=== PATIENT | male | born 1940 | race Caucasian/White ===

== ENCOUNTER 2018-08-30 11:07 | Inpatient (IN) ==
[2018-08-30] MEDS ORDERED: ALBUTEROL/IPRATROPIUM 3 ML NEB RESP TX STA (12:46)
[2018-08-30] MEDS ORDERED: methylPREDNISolone SOD SUC 125 MG/2 ML VIAL IV STA (12:46)
[2018-08-30] MEDS ORDERED: LEVOFLOXACIN INJ 750 MG in PREMIX 1 EACH IV STA (12:46)
[2018-08-30 13:43] LABS: Basophils # 0.1 10*3/uL (0.0-0.2); Basophils % 0.2 % (0.0-0.8); Eosinophils % 0.2 % (0.00-10.9); Hematocrit 39.3 VOL% (42.0-52.0); Hemoglobin 13.7 GM/DL (14.0-18.0); Immature Granulocytes % 0.5 %; Immature Granulocytes Absolute 0.11 #; Lymphocytes # 0.7 10*3/uL (1.4-4.0); Lymphocytes % 2.8 % (21.2-54.2); Mean Corpuscular HGB Conc 34.9 GM/DL (32-36); Mean Corpuscular Hemoglobin 30 PG (27-34); Mean Corpuscular Volume 85.6 FL (87-102); Monocytes # 0.9 10*3/uL (0.11-0.8); Monocytes % 3.7 % (1.7-12.7); Neutrophils # 22.2 10*3/uL (1.4-7.4); Neutrophils % 92.6 % (38.7-73.9); Platelet Count 322 T/CUMM (130-400); Red Blood Count 4.59 MC/CUMM (3.8-5.5); Red Cell Distribution Width 13.2 % (9.3-17.3); White Blood Count 23.9 T/CUMM (4-12)
[2018-08-30 14:04] LABS: Albumin 3.5 G/DL (3.4-5.0); Calcium 8.7 MG/DL (8.5-10.1); Osmolality,Calculated 257.2 MOS/KG (273-304); Total Protein 6.3 G/DL (6.4-8.3)
[2018-08-30 14:05] LABS: Lymphocytes 2 % (20-55); Platelet Estimate Adequate; Segmented Neutrophils 95 % (50-85); Total Cells Counted 100
[2018-08-30] MEDS ORDERED: SODIUM CHLORIDE 0.9% 2,400 ML IV ONE (14:18)
[2018-08-30] MEDS ORDERED: ALBUTEROL 2.5 MG/3 ML NEB RESP TX PRN ×2 (14:21→14:25)
[2018-08-30] MEDS ORDERED: ACETAMINOPHEN 325 MG TABLET PO PRN (14:25)
[2018-08-30] MEDS ORDERED: guaiFENesin/DM ER 600-30 MG TABLET PO PRN (14:25)
[2018-08-30] MEDS ORDERED: ONDANSETRON 4 MG/2 ML VIAL IV PRN (14:25)
[2018-08-30] MEDS ORDERED: NOREPINEPHRINE 8 MG in SODIUM CHLORIDE 0.9% 242 ML IV PRN (14:25)
[2018-08-30] MEDS ORDERED: MORPHINE 4 MG/1 ML VIAL IV PRN (14:25)
[2018-08-30] MEDS ORDERED: hydrALAZINE 20 MG/1 ML VIAL IV PRN (14:44)
[2018-08-30] MEDS ORDERED: SODIUM CHLORIDE 0.9% 500 ML IV STA (14:45)
[2018-08-30] MEDS ORDERED: GLUCAGON 1 MG VIAL IM PRN (14:47)
[2018-08-30] MEDS ORDERED: MAGNESIUM SULF RIDER 2 GM in PREMIX 1 EACH IV PRN (14:47)
[2018-08-30] MEDS ORDERED: MAGNESIUM SULF RIDER 4 GM in PREMIX 1 EACH IV PRN (14:47)
[2018-08-30] MEDS ORDERED: DEXTROSE 50% 25 GM/50 ML SYRINGE IV PRN (14:47)
[2018-08-30 15:01] LABS: Allen Test Positive
[2018-08-30 15:02] LABS: ABG Base Excess 0.1 MMOL/L (-2.5-2.5); ABG HCO3 24.5 MMOL/L (20-26); ABG Oxygen Saturation 96.9 % (95-100); ABG PCO2 33.9 MM HG (35-48); ABG PH 7.447 (7.35-7.45); ABG PO2 87.5 MM HG (80-95)
[2018-08-30 15:30] LABS: Apearance,Urine Slightly Hazy (Clear); Bilirubin,Urine Negative (Negative); Blood, Urine Negative (Negative); Glucose,Urine (UA) Negative (Negative); Ketones,Urine Negative (Negative); Mucus,Urine Occasional /LPF (Occasional); Nitrite,Urine Negative (Negative); Protein,Urine Negative; RBC,Urine <1 /HPF (0-4); Urine Color Yellow (Yellow); Urine Specific Gravity 1.013 (1.001-1.035); Urine Urobilinogen < 2.0 EU/DL (0.2-1.0); WBC,Urine 1 /HPF (0-6)
[2018-08-30 16:04] LABS: Risk Ratio 2.36; Thyroid Stimulating Hormone 1.14 uIU/ml (0.358-3.74); VLDL CHOLESTEROL 18.4 MG/DL
[2018-08-30] MEDS ORDERED: LORazepam 2 MG/1 ML VIAL IV PRN (16:26)
[2018-08-30] MEDS: SODIUM CHLORIDE 0.9% 1,000 ML IV SCH (17:04)
[2018-08-30] MEDS: HEPARIN 5,000 UNIT/1 ML VIAL SUBCUT SCH ×2 (17:14→22:02)
[2018-08-30] MEDS: PANTOPRAZOLE 40 MG VIAL IV SCH (17:14)
[2018-08-30] MEDS: PIPERACILLIN/TAZOBACTAM 3,375 MG in SODIUM CHLORIDE 0.9% 100 ML IV SCH ×2 (17:14→21:37)
[2018-08-30] MEDS: INSULIN REGULAR 100 UNIT/ML SUBCUT SCH (19:04)
[2018-08-30] MEDS: ALBUTEROL/IPRATROPIUM 3 ML NEB RESP TX SCH (20:07)
[2018-08-30] MEDS: methylPREDNISolone SOD SUC 125 MG/2 ML VIAL IV SCH (21:35)
[2018-08-30] MEDS: traZODone 50 MG TABLET PO PRN (21:36)
[2018-08-30] MEDS: DOCUSATE SODIUM 100 MG CAPSULE PO SCH (21:36)
[2018-08-31] MEDS: ALBUTEROL/IPRATROPIUM 3 ML NEB RESP TX SCH ×4 (00:35→21:21)
[2018-08-31] MEDS: SODIUM CHLORIDE 0.9% 1,000 ML IV SCH ×2 (01:38→16:02)
[2018-08-31] MEDS: methylPREDNISolone SOD SUC 125 MG/2 ML VIAL IV SCH ×4 (02:06→21:08)
[2018-08-31 05:14] LABS: Basophils % 0.1 % (0.0-0.8); Hematocrit 37.4 VOL% (42.0-52.0); Hemoglobin 12.8 GM/DL (14.0-18.0); Immature Granulocytes % 1.2 %; Immature Granulocytes Absolute 0.26 #; Lymphocytes # 0.4 10*3/uL (1.4-4.0); Lymphocytes % 1.9 % (21.2-54.2); Mean Corpuscular HGB Conc 34.2 GM/DL (32-36); Mean Corpuscular Hemoglobin 30 PG (27-34); Mean Corpuscular Volume 86.8 FL (87-102); Mean Platelet Volume 9.6 FL (9.6-12.0); Monocytes # 0.2 10*3/uL (0.11-0.8); Neutrophils # 21.4 10*3/uL (1.4-7.4); Neutrophils % 95.8 % (38.7-73.9); Platelet Count 282 T/CUMM (130-400); Red Blood Count 4.31 MC/CUMM (3.8-5.5); Red Cell Distribution Width 13.2 % (9.3-17.3); White Blood Count 22.4 T/CUMM (4-12)
[2018-08-31 05:36] LABS: Bilirubin,Total 0.9 MG/DL (0.2-1.0); Calcium 8.3 MG/DL (8.5-10.1); Osmolality,Calculated 265.9 MOS/KG (273-304); Potassium 3.5 MMOL/L (3.5-5.1); Total Protein 6.2 G/DL (6.4-8.3)
[2018-08-31] MEDS: PIPERACILLIN/TAZOBACTAM 3,375 MG in SODIUM CHLORIDE 0.9% 100 ML IV SCH ×2 (05:50→18:03)
[2018-08-31] MEDS: HEPARIN 5,000 UNIT/1 ML VIAL SUBCUT SCH ×3 (06:23→22:59)
[2018-08-31 08:40] LABS: Band Neutrophils 19 % (0-10); Lymphocytes 2 % (20-55); Macrocytosis Slight; Segmented Neutrophils 79 % (50-85); Total Cells Counted 100
[2018-08-31 08:41] LABS: Anisocytosis Slight
[2018-08-31] MEDS: DOCUSATE SODIUM 100 MG CAPSULE PO SCH ×2 (10:19→21:08)
[2018-08-31] MEDS: hydroCHLOROthiazide 25 MG TABLET PO SCH (10:20)
[2018-08-31] MEDS: TELMISARTAN 40 MG TABLET PO SCH (10:20)
[2018-08-31] MEDS: PANTOPRAZOLE 40 MG TABLET PO SCH (10:25)
[2018-08-31] MEDS: INSULIN REGULAR 100 UNIT/ML SUBCUT SCH ×2 (10:27→18:00)
[2018-08-31] MEDS: VANCOMYCIN INJ 1,000 MG in SODIUM CHLORIDE 0.9% 250 ML IV SCH (11:21)
[2018-08-31] MEDS: LEVOFLOXACIN INJ 750 MG in PREMIX 1 EACH IV SCH (16:11)
[2018-08-31] MEDS: PANTOPRAZOLE 40 MG VIAL IV SCH (16:18)
[2018-09-01] MEDS: traZODone 50 MG TABLET PO PRN (00:19)
[2018-09-01] MEDS: ALBUTEROL/IPRATROPIUM 3 ML NEB RESP TX SCH ×4 (02:08→19:59)
[2018-09-01] MEDS: methylPREDNISolone SOD SUC 125 MG/2 ML VIAL IV SCH ×4 (03:40→17:10)
[2018-09-01] MEDS: PIPERACILLIN/TAZOBACTAM 3,375 MG in SODIUM CHLORIDE 0.9% 100 ML IV SCH ×3 (03:40→17:10)
[2018-09-01] MEDS: SODIUM CHLORIDE 0.9% 1,000 ML IV SCH ×3 (04:29→23:34)
[2018-09-01] MEDS: VANCOMYCIN INJ 1,000 MG in SODIUM CHLORIDE 0.9% 250 ML IV SCH ×2 (04:29→21:34)
[2018-09-01 05:21] LABS: Basophils % 0.1 % (0.0-0.8); Hemoglobin 11.7 GM/DL (14.0-18.0); Immature Granulocytes % 1.9 %; Immature Granulocytes Absolute 0.39 #; Lymphocytes # 0.4 10*3/uL (1.4-4.0); Lymphocytes % 1.8 % (21.2-54.2); Mean Corpuscular HGB Conc 34.4 GM/DL (32-36); Mean Corpuscular Hemoglobin 30 PG (27-34); Mean Corpuscular Volume 87.4 FL (87-102); Mean Platelet Volume 9.6 FL (9.6-12.0); Monocytes # 0.4 10*3/uL (0.11-0.8); Monocytes % 1.9 % (1.7-12.7); Neutrophils # 19.4 10*3/uL (1.4-7.4); Neutrophils % 94.3 % (38.7-73.9); Platelet Count 284 T/CUMM (130-400); Red Blood Count 3.89 MC/CUMM (3.8-5.5); Red Cell Distribution Width 13.6 % (9.3-17.3); White Blood Count 20.5 T/CUMM (4-12)
[2018-09-01 05:45] LABS: Hypochromasia 1+; Lymphocytes 1 % (20-55); Platelet Estimate Adequate; Segmented Neutrophils 98 % (50-85); Total Cells Counted 100
[2018-09-01 05:54] LABS: Albumin 2.7 G/DL (3.4-5.0); Bilirubin,Total 0.4 MG/DL (0.2-1.0); Calcium 7.6 MG/DL (8.5-10.1); Osmolality,Calculated 273.1 MOS/KG (273-304); Potassium 2.8 MMOL/L (3.5-5.1); Total Protein 5.7 G/DL (6.4-8.3)
[2018-09-01 06:14] LABS: Calcium 7.8 MG/DL (8.5-10.1); Osmolality,Calculated 273.1 MOS/KG (273-304); Potassium 2.8 MMOL/L (3.5-5.1)
[2018-09-01] MEDS: POTASSIUM CHLORIDE RIDER 10 MEQ in PREMIX 1 EACH IV PRN (06:15)
[2018-09-01] MEDS: HEPARIN 5,000 UNIT/1 ML VIAL SUBCUT SCH ×3 (06:26→23:45)
[2018-09-01] MEDS ORDERED: MAGNESIUM SULF RIDER 2 GM in PREMIX 1 EACH IV ONE (07:51)
[2018-09-01] MEDS: INSULIN REGULAR 100 UNIT/ML SUBCUT SCH ×2 (09:16→17:10)
[2018-09-01] MEDS: DOCUSATE SODIUM 100 MG CAPSULE PO SCH ×2 (09:17→21:38)
[2018-09-01] MEDS: hydroCHLOROthiazide 25 MG TABLET PO SCH (09:17)
[2018-09-01] MEDS: TELMISARTAN 40 MG TABLET PO SCH (09:17)
[2018-09-01] MEDS: POTASSIUM CHLORIDE 20 MEQ TABLET PO SCH ×4 (09:17→21:39)
[2018-09-01] MEDS: PANTOPRAZOLE 40 MG TABLET PO SCH (09:17)
[2018-09-01] MEDS: LEVOFLOXACIN INJ 750 MG in PREMIX 1 EACH IV SCH (13:56)
[2018-09-02] MEDS: ALBUTEROL/IPRATROPIUM 3 ML NEB RESP TX SCH ×4 (00:44→19:36)
[2018-09-02] MEDS: methylPREDNISolone SOD SUC 125 MG/2 ML VIAL IV SCH ×2 (01:35→09:03)
[2018-09-02] MEDS: traZODone 50 MG TABLET PO PRN ×2 (02:50→21:52)
[2018-09-02] MEDS: PIPERACILLIN/TAZOBACTAM 3,375 MG in SODIUM CHLORIDE 0.9% 100 ML IV SCH ×2 (02:51→09:04)
[2018-09-02] MEDS: SODIUM CHLORIDE 0.9% 1,000 ML IV SCH ×2 (02:53→09:05)
[2018-09-02 05:51] LABS: Basophils % 0.1 % (0.0-0.8); Calcium 8.3 MG/DL (8.5-10.1); Hematocrit 35.3 VOL% (42.0-52.0); Hemoglobin 11.8 GM/DL (14.0-18.0); Immature Granulocytes Absolute 0.16 #; Lymphocytes # 0.4 10*3/uL (1.4-4.0); Lymphocytes % 2.5 % (21.2-54.2); Mean Corpuscular HGB Conc 33.4 GM/DL (32-36); Mean Corpuscular Hemoglobin 30 PG (27-34); Mean Corpuscular Volume 88.7 FL (87-102); Mean Platelet Volume 9.4 FL (9.6-12.0); Monocytes # 0.3 10*3/uL (0.11-0.8); Neutrophils # 15.2 10*3/uL (1.4-7.4); Neutrophils % 94.4 % (38.7-73.9); Osmolality,Calculated 270.4 MOS/KG (273-304); Platelet Count 298 T/CUMM (130-400); Potassium 3.8 MMOL/L (3.5-5.1); Red Blood Count 3.98 MC/CUMM (3.8-5.5); Red Cell Distribution Width 13.5 % (9.3-17.3); White Blood Count 16.1 T/CUMM (4-12)
[2018-09-02 06:24] LABS: Alanine Aminotransferase 28 U/L (16-61); Albumin 2.7 G/DL (3.4-5.0); Alkaline Phosphatase 35 U/L (45-117); Aspartate Amino Transferase 29 U/L (0-37); Bilirubin,Total < 0.39 MG/DL (0.2-1.0); Blood Urea Nitrogen 19 MG/DL (7-18); Calcium 8.1 MG/DL (8.5-10.1); Glucose 145 MG/DL (74-106); Osmolality,Calculated 272.2 MOS/KG (273-304); Potassium 3.9 MMOL/L (3.5-5.1); Sodium 134 MMOL/L (136-145); Total Protein 5.7 G/DL (6.4-8.3)
[2018-09-02 06:28] LABS: Band Neutrophils 2 % (0-10); Hypochromasia 1+; Lymphocytes 3 % (20-55); Microcytosis Slight; Segmented Neutrophils 94 % (50-85); Total Cells Counted 100
[2018-09-02 06:29] LABS: Platelet Estimate Normal
[2018-09-02] MEDS: INSULIN REGULAR 100 UNIT/ML SUBCUT SCH ×2 (08:09→17:36)
[2018-09-02] MEDS: DOCUSATE SODIUM 100 MG CAPSULE PO SCH ×2 (09:04→21:52)
[2018-09-02] MEDS: hydroCHLOROthiazide 25 MG TABLET PO SCH (09:04)
[2018-09-02] MEDS: HEPARIN 5,000 UNIT/1 ML VIAL SUBCUT SCH ×3 (09:04→22:35)
[2018-09-02] MEDS: PANTOPRAZOLE 40 MG TABLET PO SCH (09:04)
[2018-09-02] MEDS: TELMISARTAN 40 MG TABLET PO SCH (09:04)
[2018-09-02] MEDS: predniSONE 20 MG TABLET PO SCH (12:19)
[2018-09-02] MEDS: LEVOFLOXACIN INJ 750 MG in PREMIX 1 EACH IV SCH (15:48)
[2018-09-03] MEDS: ALBUTEROL/IPRATROPIUM 3 ML NEB RESP TX SCH ×4 (01:10→19:25)
[2018-09-03 05:45] LABS: Basophils % 0.1 % (0.0-0.8); Eosinophils % 0.2 % (0.00-10.9); Hemoglobin 12.3 GM/DL (14.0-18.0); Immature Granulocytes % 1.3 %; Immature Granulocytes Absolute 0.16 #; Lymphocytes # 1.3 10*3/uL (1.4-4.0); Lymphocytes % 10.5 % (21.2-54.2); Mean Corpuscular HGB Conc 33.2 GM/DL (32-36); Mean Corpuscular Hemoglobin 30 PG (27-34); Mean Corpuscular Volume 88.9 FL (87-102); Mean Platelet Volume 9.5 FL (9.6-12.0); Monocytes # 0.7 10*3/uL (0.11-0.8); Monocytes % 5.4 % (1.7-12.7); Neutrophils # 10.5 10*3/uL (1.4-7.4); Neutrophils % 82.5 % (38.7-73.9); Platelet Count 285 T/CUMM (130-400); Red Blood Count 4.16 MC/CUMM (3.8-5.5); Red Cell Distribution Width 13.4 % (9.3-17.3); White Blood Count 12.7 T/CUMM (4-12)
[2018-09-03 06:15] LABS: Albumin 2.6 G/DL (3.4-5.0); Bilirubin,Total 0.4 MG/DL (0.2-1.0); Calcium 8.6 MG/DL (8.5-10.1); Osmolality,Calculated 266.5 MOS/KG (273-304); Potassium 3.3 MMOL/L (3.5-5.1); Total Protein 5.9 G/DL (6.4-8.3)
[2018-09-03] MEDS: INSULIN REGULAR 100 UNIT/ML SUBCUT SCH ×2 (08:21→15:45)
[2018-09-03] MEDS: DOCUSATE SODIUM 100 MG CAPSULE PO SCH ×2 (09:09→20:32)
[2018-09-03] MEDS: HEPARIN 5,000 UNIT/1 ML VIAL SUBCUT SCH ×3 (09:09→23:16)
[2018-09-03] MEDS: hydroCHLOROthiazide 25 MG TABLET PO SCH (09:09)
[2018-09-03] MEDS: TELMISARTAN 40 MG TABLET PO SCH (09:10)
[2018-09-03] MEDS: PANTOPRAZOLE 40 MG TABLET PO SCH (09:10)
[2018-09-03] MEDS: predniSONE 20 MG TABLET PO SCH (09:10)
[2018-09-03] MEDS: LEVOFLOXACIN 750 MG TABLET PO SCH (10:06)
[2018-09-03] MEDS: POTASSIUM CHLORIDE RIDER 10 MEQ in PREMIX 1 EACH IV PRN ×3 (20:33→23:24)
[2018-09-03] MEDS: traZODone 50 MG TABLET PO PRN (23:23)
[2018-09-04] MEDS: ALBUTEROL/IPRATROPIUM 3 ML NEB RESP TX SCH ×2 (00:34→07:57)
[2018-09-04] MEDS: POTASSIUM CHLORIDE RIDER 10 MEQ in PREMIX 1 EACH IV PRN (01:51)
[2018-09-04] MEDS: HEPARIN 5,000 UNIT/1 ML VIAL SUBCUT SCH (06:00)
[2018-09-04] MEDS ORDERED: predniSONE 10 MG TABLET PO SCH (07:02)
[2018-09-04] MEDS: hydroCHLOROthiazide 25 MG TABLET PO SCH (09:25)
[2018-09-04] MEDS: TELMISARTAN 40 MG TABLET PO SCH (09:25)
[2018-09-04] MEDS: PANTOPRAZOLE 40 MG TABLET PO SCH (09:26)
[2018-09-04] MEDS: LEVOFLOXACIN 750 MG TABLET PO SCH (09:26)
[2018-09-04] MEDS: DOCUSATE SODIUM 100 MG CAPSULE PO SCH (09:26)
[2018-09-04] MEDS: INSULIN REGULAR 100 UNIT/ML SUBCUT SCH (09:27)
[2018-09-04 12:38] VITALS: BP 116/79
== END 2018-09-04 12:33 | disposition home health service (06) | DRG 871 ==
LOC: EDBD → EDUNIT# → N.ED 11:07 → N.EDINP 14:25 → SUATTDRO 14:25 → N.CC 15:23 → N.5E 09-01 15:39
PROVIDERS: ADMIT Phlebology; ATTEND Internal Medicine

== ENCOUNTER 2019-02-12 10:51 | Inpatient (IN) ==
[2019-02-12] MEDS ORDERED: ALBUTEROL/IPRATROPIUM 3 ML NEB RESP TX STA (11:38)
[2019-02-12 11:53] LABS: Basophils # 0.1 10*3/uL (0.0-0.2); Basophils % 0.4 % (0.0-0.8); Eosinophils % 0.2 % (0.00-10.9); Hematocrit 42.9 VOL% (42.0-52.0); Hemoglobin 14.4 GM/DL (14.0-18.0); Immature Granulocytes % 0.7 %; Immature Granulocytes Absolute 0.16 #; Lymphocytes # 0.4 10*3/uL (1.4-4.0); Lymphocytes % 1.6 % (21.2-54.2); Mean Corpuscular HGB Conc 33.6 GM/DL (32-36); Mean Corpuscular Volume 85.5 FL (87-102); Mean Platelet Volume 9.3 FL (9.6-12.0); Monocytes % 2.6 % (1.7-12.7); Neutrophils % 94.5 % (38.7-73.9); Platelet Count 351 T/CUMM (130-400); Red Blood Count 5.02 MC/CUMM (3.8-5.5); Red Cell Distribution Width 13.8 % (9.3-17.3); White Blood Count 21.5 T/CUMM (4-12)
[2019-02-12 12:06] LABS: Albumin 3.7 G/DL (3.4-5.0); Bilirubin,Total 1.4 MG/DL (0.2-1.0); Calcium 9.3 MG/DL (8.5-10.1); Osmolality,Calculated 257.1 MOS/KG (273-304); Total Protein 7.6 G/DL (6.4-8.3)
[2019-02-12] MEDS ORDERED: LEVOFLOXACIN INJ 500 MG in PREMIX 1 EACH IV STA (12:06)
[2019-02-12 12:17] LABS: Band Neutrophils 10 % (0-10); Eosinophils 1 % (0-10); Lymphocytes 1 % (20-55); Segmented Neutrophils 86 % (50-85); Total Cells Counted 100
[2019-02-12 12:20] LABS: Polychromasia Slight
[2019-02-12 12:21] LABS: Platelet Estimate Increased
[2019-02-12 12:24] LABS: Ovalocytes Few
[2019-02-12] MEDS ORDERED: SODIUM CHLORIDE 0.9% 1,000 ML IV STA (12:53)
[2019-02-12] MEDS ORDERED: ALBUTEROL 2.5 MG/3 ML NEB RESP TX PRN (15:01)
[2019-02-12] MEDS ORDERED: ALBUTEROL/IPRATROPIUM 3 ML NEB RESP TX PRN (15:01)
[2019-02-12] MEDS ORDERED: ONDANSETRON 4 MG/2 ML VIAL IV PRN (15:02)
[2019-02-12] MEDS ORDERED: guaiFENesin/DM ER 600-30 MG TABLET PO PRN (15:02)
[2019-02-12] MEDS ORDERED: diphenhydrAMINE CAP 25 MG CAPSULE PO PRN (15:02)
[2019-02-12] MEDS ORDERED: DOCUSATE SODIUM 100 MG CAPSULE PO PRN (15:02)
[2019-02-12] MEDS ORDERED: ACETAMINOPHEN 325 MG TABLET PO PRN (15:02)
[2019-02-12] MEDS ORDERED: BISACODYL 5 MG TABLET PO PRN (15:02)
[2019-02-12] MEDS ORDERED: SODIUM CHLORIDE 0.9% 1,000 ML IV ONE (16:14)
[2019-02-12] MEDS: SODIUM CHLORIDE 0.9% 1,000 ML IV SCH (18:20)
[2019-02-12] MEDS: ENOXAPARIN 40 MG/0.4 ML SYRINGE SUBCUT SCH (21:42)
[2019-02-12] MEDS: CELECOXIB 200 MG CAPSULE PO SCH (21:44)
[2019-02-12] MEDS: rOPINIRole 0.25 MG TABLET PO SCH (21:45)
[2019-02-13] MEDS: SODIUM CHLORIDE 0.9% 1,000 ML IV SCH ×2 (02:14→10:01)
[2019-02-13 05:33] LABS: Basophils # 0.1 10*3/uL (0.0-0.2); Basophils % 0.4 % (0.0-0.8); Eosinophils # 0.5 10*3/uL (0.0-0.87); Eosinophils % 2.9 % (0.00-10.9); Hematocrit 32.8 VOL% (42.0-52.0); Hemoglobin 11.1 GM/DL (14.0-18.0); Immature Granulocytes % 0.6 %; Lymphocytes # 1.2 10*3/uL (1.4-4.0); Lymphocytes % 7.5 % (21.2-54.2); Mean Corpuscular HGB Conc 33.8 GM/DL (32-36); Mean Corpuscular Volume 84.8 FL (87-102); Mean Platelet Volume 9.7 FL (9.6-12.0); Monocytes % 3.6 % (1.7-12.7); Platelet Count 286 T/CUMM (130-400); Red Blood Count 3.87 MC/CUMM (3.8-5.5); White Blood Count 15.4 T/CUMM (4-12)
[2019-02-13 05:54] LABS: Calcium 8.1 MG/DL (8.5-10.1); Osmolality,Calculated 263.7 MOS/KG (273-304)
[2019-02-13] MEDS ORDERED: IPRATROPIUM 500 MCG/2.5 ML NEB RESP TX SCH (07:00)
[2019-02-13] MEDS ORDERED: LOSARTAN/HCTZ 50-12.5 MG TABLET PO SCH (09:00)
[2019-02-13] MEDS ORDERED: LEVOFLOXACIN INJ 750 MG in PREMIX 1 EACH IV SCH (09:00)
[2019-02-13] MEDS ORDERED: PANTOPRAZOLE 40 MG TABLET PO SCH (09:00)
[2019-02-13] MEDS: CELECOXIB 200 MG CAPSULE PO SCH ×2 (09:22→21:46)
[2019-02-13] MEDS: ASPIRIN EC 81 MG TABLET PO SCH (09:23)
[2019-02-13] MEDS: PANTOPRAZOLE 40 MG TABLET PO SCH (09:24)
[2019-02-13] MEDS: TERBINAFINE 250 MG TABLET PO SCH (09:24)
[2019-02-13] MEDS: LOSARTAN 50 MG TABLET PO SCH (09:28)
[2019-02-13] MEDS: Fluticasone Furoate-Vilanterol [Breo Ellipta] INH SCH (09:32)
[2019-02-13] MEDS: POTASSIUM CHLORIDE 20 MEQ TABLET PO PRN ×3 (10:01→14:21)
[2019-02-13] MEDS: PIPERACILLIN/TAZOBACTAM 3,375 MG in SODIUM CHLORIDE 0.9% 100 ML IV SCH ×2 (12:13→21:46)
[2019-02-13] MEDS: BUDESONIDE 0.5 MG/2 ML NEB RESP TX SCH ×2 (13:13→19:42)
[2019-02-13] MEDS: DORNASE ALFA 2.5 MG/2.5 ML VIAL RESP TX SCH (13:13)
[2019-02-13] MEDS: ALBUTEROL/IPRATROPIUM 3 ML NEB RESP TX SCH ×2 (13:13→19:42)
[2019-02-13] MEDS: AZITHROMYCIN INJ 500 MG in SODIUM CHLORIDE 0.9% 250 ML IV SCH (16:57)
[2019-02-13] MEDS: rOPINIRole 0.25 MG TABLET PO SCH (21:46)
[2019-02-13] MEDS: ENOXAPARIN 40 MG/0.4 ML SYRINGE SUBCUT SCH (21:46)
[2019-02-14] MEDS: ALBUTEROL/IPRATROPIUM 3 ML NEB RESP TX SCH ×4 (01:13→18:57)
[2019-02-14] MEDS: SODIUM CHLORIDE 0.9% 1,000 ML IV SCH (01:32)
[2019-02-14] MEDS: PIPERACILLIN/TAZOBACTAM 3,375 MG in SODIUM CHLORIDE 0.9% 100 ML IV SCH ×3 (05:15→20:51)
[2019-02-14 06:25] LABS: Basophils # 0.1 10*3/uL (0.0-0.2); Basophils % 0.8 % (0.0-0.8); Eosinophils # 0.8 10*3/uL (0.0-0.87); Eosinophils % 8.3 % (0.00-10.9); Hematocrit 31.3 VOL% (42.0-52.0); Hemoglobin 10.4 GM/DL (14.0-18.0); Immature Granulocytes % 0.3 %; Immature Granulocytes Absolute 0.03 #; Lymphocytes # 1.4 10*3/uL (1.4-4.0); Lymphocytes % 14.8 % (21.2-54.2); Mean Corpuscular HGB Conc 33.2 GM/DL (32-36); Mean Corpuscular Volume 86.5 FL (87-102); Mean Platelet Volume 9.6 FL (9.6-12.0); Monocytes % 6.8 % (1.7-12.7); Platelet Count 271 T/CUMM (130-400); Red Blood Count 3.62 MC/CUMM (3.8-5.5); Red Cell Distribution Width 14.1 % (9.3-17.3); White Blood Count 9.6 T/CUMM (4-12)
[2019-02-14 06:35] LABS: Calcium 8.2 MG/DL (8.5-10.1); Osmolality,Calculated 265.5 MOS/KG (273-304)
[2019-02-14] MEDS ORDERED: MAGNESIUM SULF RIDER 4 GM in PREMIX 1 EACH IV ONE (07:13)
[2019-02-14] MEDS: BUDESONIDE 0.5 MG/2 ML NEB RESP TX SCH ×2 (07:44→18:57)
[2019-02-14] MEDS: DORNASE ALFA 2.5 MG/2.5 ML VIAL RESP TX SCH ×3 (07:44→18:57)
[2019-02-14] MEDS: ASPIRIN EC 81 MG TABLET PO SCH (08:28)
[2019-02-14] MEDS: LOSARTAN 50 MG TABLET PO SCH (08:28)
[2019-02-14] MEDS: CELECOXIB 200 MG CAPSULE PO SCH ×2 (08:28→20:48)
[2019-02-14] MEDS: TERBINAFINE 250 MG TABLET PO SCH (08:28)
[2019-02-14] MEDS: PANTOPRAZOLE 40 MG TABLET PO SCH (08:28)
[2019-02-14] MEDS: Fluticasone Furoate-Vilanterol [Breo Ellipta] INH SCH (08:29)
[2019-02-14] MEDS: methylPREDNISolone SOD SUC 40 MG/1 ML VIAL IV SCH ×2 (09:21→17:02)
[2019-02-14] MEDS: amLODIPine 5 MG TABLET PO SCH (13:50)
[2019-02-14] MEDS: AZITHROMYCIN INJ 500 MG in SODIUM CHLORIDE 0.9% 250 ML IV SCH (17:59)
[2019-02-14] MEDS: ENOXAPARIN 40 MG/0.4 ML SYRINGE SUBCUT SCH (20:48)
[2019-02-14] MEDS: rOPINIRole 0.25 MG TABLET PO SCH (20:48)
[2019-02-15] MEDS: methylPREDNISolone SOD SUC 40 MG/1 ML VIAL IV SCH ×2 (00:51→09:00)
[2019-02-15] MEDS: ALBUTEROL/IPRATROPIUM 3 ML NEB RESP TX SCH ×2 (01:06→07:28)
[2019-02-15 04:41] LABS: Basophils % 0.1 % (0.0-0.8); Hematocrit 30.9 VOL% (42.0-52.0); Hemoglobin 10.2 GM/DL (14.0-18.0); Immature Granulocytes % 0.7 %; Immature Granulocytes Absolute 0.07 #; Lymphocytes # 0.5 10*3/uL (1.4-4.0); Lymphocytes % 5.2 % (21.2-54.2); Mean Corpuscular Volume 86.8 FL (87-102); Mean Platelet Volume 9.2 FL (9.6-12.0); Monocytes % 1.6 % (1.7-12.7); Neutrophils % 92.4 % (38.7-73.9); Platelet Count 280 T/CUMM (130-400); Red Blood Count 3.56 MC/CUMM (3.8-5.5); Red Cell Distribution Width 14.1 % (9.3-17.3); White Blood Count 9.4 T/CUMM (4-12)
[2019-02-15 05:10] LABS: Band Neutrophils 3 % (0-10); Lymphocytes 4 % (20-55); Platelet Estimate Normal; Segmented Neutrophils 93 % (50-85); Total Cells Counted 100
[2019-02-15 05:11] LABS: Anisocytosis 1+
[2019-02-15 05:16] LABS: Calcium 8.8 MG/DL (8.5-10.1); Osmolality,Calculated 273.2 MOS/KG (273-304)
[2019-02-15 05:26] LABS: Calcium 8.6 MG/DL (8.5-10.1); Osmolality,Calculated 273.2 MOS/KG (273-304)
[2019-02-15] MEDS: PIPERACILLIN/TAZOBACTAM 3,375 MG in SODIUM CHLORIDE 0.9% 100 ML IV SCH (05:42)
[2019-02-15] MEDS: BUDESONIDE 0.5 MG/2 ML NEB RESP TX SCH (07:28)
[2019-02-15] MEDS: DORNASE ALFA 2.5 MG/2.5 ML VIAL RESP TX SCH (07:38)
[2019-02-15 07:48] VITALS: BP 172/99
[2019-02-15] MEDS: TERBINAFINE 250 MG TABLET PO SCH (09:01)
[2019-02-15] MEDS: ASPIRIN EC 81 MG TABLET PO SCH (09:01)
[2019-02-15] MEDS: LOSARTAN 50 MG TABLET PO SCH (09:01)
[2019-02-15] MEDS: PANTOPRAZOLE 40 MG TABLET PO SCH (09:01)
[2019-02-15] MEDS: CELECOXIB 200 MG CAPSULE PO SCH (09:01)
[2019-02-15] MEDS: amLODIPine 5 MG TABLET PO SCH (09:02)
[2019-02-15] MEDS: Fluticasone Furoate-Vilanterol [Breo Ellipta] INH SCH (09:03)
== END 2019-02-15 11:38 | disposition home health service (06) | DRG 190 ==
LOC: N.ED 10:51 → N.EDINP 14:01 → N.2E 14:43
PROVIDERS: ADMIT Internal Medicine; ATTEND Internal Medicine

== ENCOUNTER 2019-07-11 04:06 | Inpatient (IN) ==
[2019-07-11] MEDS ORDERED: ALBUTEROL/IPRATROPIUM 3 ML NEB RESP TX STA (04:56)
[2019-07-11] MEDS ORDERED: SODIUM CHLORIDE 0.9% 1,000 ML IV STA (04:56)
[2019-07-11] MEDS ORDERED: methylPREDNISolone SOD SUC 125 MG/2 ML VIAL IV STA (04:56)
[2019-07-11 05:27] LABS: ABG Base Excess -0.3 MMOL/L (-2.5-2.5); ABG HCO3 24.2 MMOL/L (20-26); ABG Oxygen Saturation 96.7 % (95-100); ABG PCO2 31.6 MM HG (35-48); ABG PH 7.462 (7.35-7.45); ABG PO2 78.2 MM HG (80-95); ABG TCO2 19.2 MMOL/L (23-27); Allen Test Positive
[2019-07-11 05:39] LABS: Basophils % 0.3 % (0.0-0.8); Eosinophils # 0.1 10*3/uL (0.0-0.87); Eosinophils % 0.5 % (0.00-10.9); Hematocrit 41.6 VOL% (42.0-52.0); Hemoglobin 14.5 GM/DL (14.0-18.0); Immature Granulocytes % 0.3 %; Immature Granulocytes Absolute 0.05 #; Lymphocytes # 0.7 10*3/uL (1.4-4.0); Lymphocytes % 4.6 % (21.2-54.2); Mean Corpuscular HGB Conc 34.9 GM/DL (32-36); Mean Platelet Volume 9.2 FL (9.6-12.0); Monocytes % 1.8 % (1.7-12.7); Neutrophils % 92.5 % (38.7-73.9); Platelet Count 328 T/CUMM (130-400); Red Blood Count 4.84 MC/CUMM (3.8-5.5); White Blood Count 14.7 T/CUMM (4-12)
[2019-07-11] MEDS ORDERED: LEVOFLOXACIN INJ 500 MG in PREMIX 1 EACH IV STA (05:54)
[2019-07-11 06:05] LABS: Albumin 3.5 G/DL (3.4-5.0); Bilirubin,Total 0.8 MG/DL (0.2-1.0); Calcium 8.5 MG/DL (8.5-10.1); Osmolality,Calculated 268.4 MOS/KG (273-304); Total Protein 6.2 G/DL (6.4-8.3)
[2019-07-11 06:35] LABS: Band Neutrophils 5 % (0-10); Hypochromasia Slight; Lymphocytes 5 % (20-55); Segmented Neutrophils 89 % (50-85); Total Cells Counted 100
[2019-07-11 06:36] LABS: Microcytosis Slight
[2019-07-11] MEDS ORDERED: MAGNESIUM SULF RIDER 2 GM in PREMIX 1 EACH IV ONE (07:44)
[2019-07-11] MEDS ORDERED: NICOTINE 21 MG/24 HR PATCH TRANSDERM PRN (08:58)
[2019-07-11] MEDS ORDERED: MAGNESIUM SULF RIDER 2 GM in PREMIX 1 EACH IV PRN (08:58)
[2019-07-11] MEDS ORDERED: ALBUTEROL 2.5 MG/3 ML NEB RESP TX PRN (08:58)
[2019-07-11] MEDS ORDERED: MAGNESIUM SULF RIDER 4 GM in PREMIX 1 EACH IV PRN (08:58)
[2019-07-11] MEDS ORDERED: guaiFENesin/DM ER 600-30 MG TABLET PO PRN (08:58)
[2019-07-11] MEDS ORDERED: PROMETHAZINE 25 MG/1 ML VIAL IM PRN (08:58)
[2019-07-11] MEDS ORDERED: ACETAMINOPHEN 325 MG TABLET PO PRN (08:58)
[2019-07-11] MEDS ORDERED: diphenhydrAMINE CAP 25 MG CAPSULE PO PRN (08:58)
[2019-07-11] MEDS ORDERED: ONDANSETRON 4 MG/2 ML VIAL IV PRN (08:58)
[2019-07-11] MEDS ORDERED: ERGOCALCIFEROL 50,000 UNIT CAPSULE PO SCH (10:30)
[2019-07-11] MEDS: PIPERACILLIN/TAZOBACTAM 3,375 MG in SODIUM CHLORIDE 0.9% 100 ML IV SCH ×2 (13:02→17:12)
[2019-07-11] MEDS: DOCUSATE SODIUM 100 MG CAPSULE PO SCH ×2 (13:02→20:36)
[2019-07-11] MEDS: PANTOPRAZOLE 40 MG TABLET PO SCH (13:02)
[2019-07-11] MEDS: ALBUTEROL/IPRATROPIUM 3 ML NEB RESP TX SCH ×2 (14:00→20:17)
[2019-07-11] MEDS: methylPREDNISolone SOD SUC 40 MG/1 ML VIAL IV SCH ×2 (15:14→21:35)
[2019-07-11 16:12] LABS: Apearance,Urine CLEAR (Clear); Bilirubin,Urine Negative (Negative); Blood, Urine Negative (Negative); Glucose,Urine (UA) 50 mg/dL (Negative); Ketones,Urine Negative (Negative); Nitrite,Urine Negative (Negative); Protein,Urine Negative; RBC,Urine 1 /HPF (0-4); Urine Color Yellow (Yellow); Urine Specific Gravity 1.016 (1.001-1.035); Urine Urobilinogen < 2.0 EU/DL (0.2-1.0); WBC,Urine 1 /HPF (0-6)
[2019-07-11] MEDS: CELECOXIB 200 MG CAPSULE PO SCH (20:35)
[2019-07-11] MEDS: rOPINIRole 0.25 MG TABLET PO SCH (20:35)
[2019-07-11] MEDS: ZALEPLON 5 MG CAPSULE PO PRN (21:42)
[2019-07-12] MEDS: PIPERACILLIN/TAZOBACTAM 3,375 MG in SODIUM CHLORIDE 0.9% 100 ML IV SCH ×3 (00:24→17:45)
[2019-07-12] MEDS: methylPREDNISolone SOD SUC 40 MG/1 ML VIAL IV SCH ×3 (05:22→21:03)
[2019-07-12] MEDS: LEVOFLOXACIN INJ 750 MG in PREMIX 1 EACH IV SCH (05:22)
[2019-07-12 06:21] LABS: Basophils % 0.2 % (0.0-0.8); Immature Granulocytes % 1.4 %; Immature Granulocytes Absolute 0.35 #; Lymphocytes # 0.4 10*3/uL (1.4-4.0); Lymphocytes % 1.6 % (21.2-54.2); Mean Corpuscular HGB Conc 35.2 GM/DL (32-36); Mean Corpuscular Volume 85.1 FL (87-102); Mean Platelet Volume 10.1 FL (9.6-12.0); Monocytes % 1.6 % (1.7-12.7); Neutrophils % 95.2 % (38.7-73.9); Red Blood Count 3.88 MC/CUMM (3.8-5.5); Red Cell Distribution Width 13.3 % (9.3-17.3)
[2019-07-12 06:25] LABS: Hemoglobin 11.6 GM/DL (14.0-18.0); Platelet Count 252 T/CUMM (130-400); White Blood Count 25.1 T/CUMM (4-12)
[2019-07-12 06:29] LABS: Bilirubin,Total 0.7 MG/DL (0.2-1.0); Calcium 8.5 MG/DL (8.5-10.1); Lymphocytes 4 % (20-55); Osmolality,Calculated 272.7 MOS/KG (273-304); Platelet Estimate Normal; Polychromasia Slight; Risk Ratio 1.53; Segmented Neutrophils 95 % (50-85); Total Cells Counted 100; VLDL CHOLESTEROL 5.6 MG/DL
[2019-07-12] MEDS: ALBUTEROL/IPRATROPIUM 3 ML NEB RESP TX SCH ×4 (06:51→19:55)
[2019-07-12] MEDS ORDERED: hydrALAZINE 20 MG/1 ML VIAL IV PRN (08:20)
[2019-07-12] MEDS ORDERED: LOSARTAN 50 MG TABLET PO SCH (09:00)
[2019-07-12] MEDS: CELECOXIB 200 MG CAPSULE PO SCH ×2 (09:58→20:51)
[2019-07-12] MEDS: PANTOPRAZOLE 40 MG TABLET PO SCH (09:59)
[2019-07-12] MEDS: OMEGA 3 ACID ETHYL ESTERS 1 GM CAPSULE PO SCH ×2 (09:59→20:51)
[2019-07-12] MEDS: DOCUSATE SODIUM 100 MG CAPSULE PO SCH ×2 (09:59→20:51)
[2019-07-12] MEDS: amLODIPine 5 MG TABLET PO SCH (09:59)
[2019-07-12] MEDS: HEPARIN 5,000 UNIT/1 ML VIAL SUBCUT SCH ×2 (10:00→17:45)
[2019-07-12] MEDS: rOPINIRole 0.25 MG TABLET PO SCH (20:51)
[2019-07-12] MEDS: ZALEPLON 5 MG CAPSULE PO PRN (22:36)
[2019-07-13] MEDS: ALBUTEROL/IPRATROPIUM 3 ML NEB RESP TX SCH ×4 (00:29→19:39)
[2019-07-13] MEDS: PIPERACILLIN/TAZOBACTAM 3,375 MG in SODIUM CHLORIDE 0.9% 100 ML IV SCH ×2 (00:29→09:20)
[2019-07-13] MEDS: HEPARIN 5,000 UNIT/1 ML VIAL SUBCUT SCH ×3 (00:29→18:14)
[2019-07-13 05:31] LABS: Basophils % 0.1 % (0.0-0.8); Hematocrit 33.8 VOL% (42.0-52.0); Hemoglobin 11.6 GM/DL (14.0-18.0); Immature Granulocytes % 0.9 %; Immature Granulocytes Absolute 0.19 #; Lymphocytes # 0.4 10*3/uL (1.4-4.0); Lymphocytes % 1.8 % (21.2-54.2); Mean Corpuscular HGB Conc 34.3 GM/DL (32-36); Mean Corpuscular Volume 85.6 FL (87-102); Mean Platelet Volume 9.9 FL (9.6-12.0); Monocytes % 1.9 % (1.7-12.7); Neutrophils % 95.3 % (38.7-73.9); Platelet Count 259 T/CUMM (130-400); Red Blood Count 3.95 MC/CUMM (3.8-5.5); Red Cell Distribution Width 13.2 % (9.3-17.3); White Blood Count 20.9 T/CUMM (4-12)
[2019-07-13] MEDS: LEVOFLOXACIN INJ 750 MG in PREMIX 1 EACH IV SCH (05:38)
[2019-07-13] MEDS: methylPREDNISolone SOD SUC 40 MG/1 ML VIAL IV SCH ×2 (05:38→21:48)
[2019-07-13 05:48] LABS: Albumin 2.9 G/DL (3.4-5.0); Calcium 8.8 MG/DL (8.5-10.1); Osmolality,Calculated 268.8 MOS/KG (273-304); Total Protein 6.2 G/DL (6.4-8.3)
[2019-07-13 05:53] LABS: Band Neutrophils 2 % (0-10); Hypochromasia 1+; Lymphocytes 3 % (20-55); Platelet Estimate Adequate; Segmented Neutrophils 93 % (50-85); Total Cells Counted 100
[2019-07-13] MEDS: OMEGA 3 ACID ETHYL ESTERS 1 GM CAPSULE PO SCH ×2 (09:24→21:47)
[2019-07-13] MEDS: DOCUSATE SODIUM 100 MG CAPSULE PO SCH ×2 (09:24→21:47)
[2019-07-13] MEDS: CELECOXIB 200 MG CAPSULE PO SCH ×2 (09:24→21:46)
[2019-07-13] MEDS: amLODIPine 5 MG TABLET PO SCH (09:24)
[2019-07-13] MEDS: PANTOPRAZOLE 40 MG TABLET PO SCH (09:24)
[2019-07-13] MEDS: guaiFENesin/DM ER 600-30 MG TABLET PO SCH ×2 (12:12→21:46)
[2019-07-13] MEDS: cefTRIAXone 1,000 MG in SYRINGE 1 EACH IV SCH (15:37)
[2019-07-13] MEDS: LOSARTAN 50 MG TABLET PO SCH (15:38)
[2019-07-13] MEDS: ZALEPLON 5 MG CAPSULE PO PRN (21:46)
[2019-07-13] MEDS: rOPINIRole 0.25 MG TABLET PO SCH (21:46)
[2019-07-14] MEDS: ALBUTEROL/IPRATROPIUM 3 ML NEB RESP TX SCH ×4 (00:25→19:35)
[2019-07-14] MEDS: HEPARIN 5,000 UNIT/1 ML VIAL SUBCUT SCH ×3 (00:51→16:26)
[2019-07-14] MEDS: LEVOFLOXACIN INJ 750 MG in PREMIX 1 EACH IV SCH (05:33)
[2019-07-14 06:08] LABS: Basophils % 0.1 % (0.0-0.8); Hematocrit 37.9 VOL% (42.0-52.0); Hemoglobin 12.7 GM/DL (14.0-18.0); Immature Granulocytes Absolute 0.17 #; Lymphocytes # 0.5 10*3/uL (1.4-4.0); Mean Corpuscular HGB Conc 33.5 GM/DL (32-36); Mean Corpuscular Volume 86.1 FL (87-102); Mean Platelet Volume 9.8 FL (9.6-12.0); Monocytes % 1.8 % (1.7-12.7); Neutrophils % 94.1 % (38.7-73.9); Platelet Count 288 T/CUMM (130-400); Red Cell Distribution Width 13.3 % (9.3-17.3); White Blood Count 17.9 T/CUMM (4-12)
[2019-07-14 06:22] LABS: Calcium 8.6 MG/DL (8.5-10.1); Osmolality,Calculated 265.8 MOS/KG (273-304)
[2019-07-14 06:25] LABS: Bilirubin,Total 0.6 MG/DL (0.2-1.0); Calcium 8.6 MG/DL (8.5-10.1); Osmolality,Calculated 269.5 MOS/KG (273-304); Total Protein 6.6 G/DL (6.4-8.3)
[2019-07-14 06:28] LABS: Hypochromasia 1+; Lymphocytes 4 % (20-55); Platelet Estimate Adequate; Segmented Neutrophils 93 % (50-85); Total Cells Counted 100
[2019-07-14 06:29] LABS: Ovalocytes Slight
[2019-07-14] MEDS ORDERED: SODIUM CHLORIDE 0.9% 500 ML IV ONE ×2 (07:58→14:53)
[2019-07-14] MEDS: LOSARTAN 50 MG TABLET PO SCH (08:28)
[2019-07-14] MEDS: MULTIVITAMIN (CENTRUM) TABLET PO SCH (08:28)
[2019-07-14] MEDS: DOCUSATE SODIUM 100 MG CAPSULE PO SCH ×2 (08:29→20:33)
[2019-07-14] MEDS: guaiFENesin/DM ER 600-30 MG TABLET PO SCH ×2 (08:29→20:34)
[2019-07-14] MEDS: CELECOXIB 200 MG CAPSULE PO SCH ×2 (08:29→20:34)
[2019-07-14] MEDS: OMEGA 3 ACID ETHYL ESTERS 1 GM CAPSULE PO SCH ×2 (08:29→20:33)
[2019-07-14] MEDS: amLODIPine 5 MG TABLET PO SCH (08:29)
[2019-07-14] MEDS: methylPREDNISolone SOD SUC 40 MG/1 ML VIAL IV SCH (08:29)
[2019-07-14] MEDS: PANTOPRAZOLE 40 MG TABLET PO SCH (08:29)
[2019-07-14] MEDS ORDERED: NON-FORMULARY MEDICATION (Losartan 100 MG) PO SCH (09:00)
[2019-07-14] MEDS ORDERED: SODIUM CHLORIDE 0.9% 250 ML IV ONE (14:54)
[2019-07-14] MEDS: cefTRIAXone 1,000 MG in SYRINGE 1 EACH IV SCH ×2 (16:31→16:33)
[2019-07-14] MEDS: rOPINIRole 0.25 MG TABLET PO SCH (20:34)
[2019-07-14] MEDS: ZALEPLON 5 MG CAPSULE PO PRN (20:34)
[2019-07-15] MEDS: ALBUTEROL/IPRATROPIUM 3 ML NEB RESP TX SCH ×4 (00:21→19:22)
[2019-07-15] MEDS: HEPARIN 5,000 UNIT/1 ML VIAL SUBCUT SCH ×3 (00:36→16:27)
[2019-07-15] MEDS: LEVOFLOXACIN INJ 750 MG in PREMIX 1 EACH IV SCH (05:19)
[2019-07-15 05:36] LABS: Basophils # 0.1 10*3/uL (0.0-0.2); Basophils % 0.4 % (0.0-0.8); Eosinophils # 0.1 10*3/uL (0.0-0.87); Eosinophils % 0.9 % (0.00-10.9); Hematocrit 40.7 VOL% (42.0-52.0); Hemoglobin 13.9 GM/DL (14.0-18.0); Immature Granulocytes Absolute 0.25 #; Lymphocytes # 1.8 10*3/uL (1.4-4.0); Lymphocytes % 14.5 % (21.2-54.2); Mean Corpuscular HGB Conc 34.2 GM/DL (32-36); Mean Corpuscular Volume 85.5 FL (87-102); Mean Platelet Volume 9.9 FL (9.6-12.0); Monocytes % 6.3 % (1.7-12.7); Neutrophils % 75.9 % (38.7-73.9); Platelet Count 307 T/CUMM (130-400); Red Blood Count 4.76 MC/CUMM (3.8-5.5); Red Cell Distribution Width 13.2 % (9.3-17.3); White Blood Count 12.7 T/CUMM (4-12)
[2019-07-15 05:58] LABS: Bilirubin,Total 1.2 MG/DL (0.2-1.0); Calcium 8.7 MG/DL (8.5-10.1); Calcium 8.9 MG/DL (8.5-10.1); Osmolality,Calculated 258.9 MOS/KG (273-304); Osmolality,Calculated 260.8 MOS/KG (273-304); Total Protein 6.4 G/DL (6.4-8.3)
[2019-07-15] MEDS: MULTIVITAMIN (CENTRUM) TABLET PO SCH (08:34)
[2019-07-15] MEDS: OMEGA 3 ACID ETHYL ESTERS 1 GM CAPSULE PO SCH ×2 (08:34→20:45)
[2019-07-15] MEDS: DOCUSATE SODIUM 100 MG CAPSULE PO SCH ×2 (08:35→20:45)
[2019-07-15] MEDS: guaiFENesin/DM ER 600-30 MG TABLET PO SCH ×2 (08:36→20:45)
[2019-07-15] MEDS: predniSONE 20 MG TABLET PO SCH (08:36)
[2019-07-15] MEDS: amLODIPine 5 MG TABLET PO SCH (08:36)
[2019-07-15] MEDS: CELECOXIB 200 MG CAPSULE PO SCH ×2 (08:37→20:45)
[2019-07-15] MEDS: LOSARTAN 50 MG TABLET PO SCH (08:37)
[2019-07-15] MEDS: PANTOPRAZOLE 40 MG TABLET PO SCH (08:39)
[2019-07-15] MEDS: cefTRIAXone 1,000 MG in SYRINGE 1 EACH IV SCH (16:30)
[2019-07-15] MEDS: rOPINIRole 0.25 MG TABLET PO SCH (20:45)
[2019-07-15] MEDS: ZALEPLON 5 MG CAPSULE PO PRN (20:45)
[2019-07-16] MEDS: ALBUTEROL/IPRATROPIUM 3 ML NEB RESP TX SCH ×3 (00:24→13:54)
[2019-07-16] MEDS: HEPARIN 5,000 UNIT/1 ML VIAL SUBCUT SCH ×2 (02:00→08:34)
[2019-07-16 05:45] LABS: Basophils # 0.1 10*3/uL (0.0-0.2); Basophils % 0.7 % (0.0-0.8); Eosinophils # 0.4 10*3/uL (0.0-0.87); Eosinophils % 2.9 % (0.00-10.9); Hematocrit 40.1 VOL% (42.0-52.0); Hemoglobin 13.9 GM/DL (14.0-18.0); Immature Granulocytes % 3.9 %; Immature Granulocytes Absolute 0.52 #; Lymphocytes # 2.5 10*3/uL (1.4-4.0); Mean Corpuscular HGB Conc 34.7 GM/DL (32-36); Mean Corpuscular Volume 83.9 FL (87-102); Mean Platelet Volume 9.5 FL (9.6-12.0); Monocytes % 6.7 % (1.7-12.7); Neutrophils % 66.8 % (38.7-73.9); Platelet Count 278 T/CUMM (130-400); Red Blood Count 4.78 MC/CUMM (3.8-5.5); Red Cell Distribution Width 13.1 % (9.3-17.3); White Blood Count 13.3 T/CUMM (4-12)
[2019-07-16] MEDS: LEVOFLOXACIN INJ 750 MG in PREMIX 1 EACH IV SCH (06:12)
[2019-07-16 06:21] LABS: Lymphocytes 19 % (20-55); Platelet Estimate Normal; Segmented Neutrophils 76 % (50-85); Total Cells Counted 100
[2019-07-16 06:22] LABS: Polychromasia Few
[2019-07-16] MEDS: DOCUSATE SODIUM 100 MG CAPSULE PO SCH (08:33)
[2019-07-16] MEDS: CELECOXIB 200 MG CAPSULE PO SCH (08:33)
[2019-07-16] MEDS: OMEGA 3 ACID ETHYL ESTERS 1 GM CAPSULE PO SCH (08:34)
[2019-07-16] MEDS: guaiFENesin/DM ER 600-30 MG TABLET PO SCH (08:34)
[2019-07-16] MEDS: PANTOPRAZOLE 40 MG TABLET PO SCH (08:34)
[2019-07-16] MEDS: predniSONE 20 MG TABLET PO SCH (08:34)
[2019-07-16] MEDS: amLODIPine 5 MG TABLET PO SCH (08:34)
[2019-07-16] MEDS: MULTIVITAMIN (CENTRUM) TABLET PO SCH (08:34)
[2019-07-16] MEDS: LOSARTAN 50 MG TABLET PO SCH (08:34)
[2019-07-16 12:13] VITALS: BP 141/88
== END 2019-07-16 15:34 | disposition home health service (06) | DRG 193 ==
LOC: EDBD → EDUNIT# → N.ED 04:06 → N.EDINP 08:58 → N.2E 09:24
PROVIDERS: ADMIT Internal Medicine; ATTEND Internal Medicine

== ENCOUNTER 2020-02-21 14:44 | Inpatient (IN) ==
[2020-02-21 15:50] LABS: Basophils # 0.1 10*3/uL (0.0-0.2); Basophils % 0.7 % (0.0-0.8); Eosinophils # 0.5 10*3/uL (0.0-0.87); Eosinophils % 3.9 % (0.00-10.9); Hematocrit 41.4 VOL% (42.0-52.0); Hemoglobin 14.1 GM/DL (14.0-18.0); Immature Granulocytes % 0.5 %; Immature Granulocytes Absolute 0.06 #; Lymphocytes # 1.2 10*3/uL (1.4-4.0); Lymphocytes % 10.5 % (21.2-54.2); Mean Corpuscular HGB Conc 34.1 GM/DL (32-36); Mean Corpuscular Volume 84.8 FL (87-102); Monocytes % 7.7 % (1.7-12.7); Neutrophils % 76.7 % (38.7-73.9); Platelet Count 371 T/CUMM (130-400); Red Blood Count 4.88 MC/CUMM (3.8-5.5); Red Cell Distribution Width 13.2 % (9.3-17.3); White Blood Count 11.5 T/CUMM (4-12)
[2020-02-21 16:22] LABS: Albumin 3.8 G/DL (3.4-5.0); Bilirubin,Direct 0.16 MG/DL (0.0-0.20); Bilirubin,Indirect 0.3 MG/DL (0.0-1.0); Bilirubin,Total 0.5 MG/DL (0.2-1.0); Calcium 9.2 MG/DL (8.5-10.1); Osmolality,Calculated 257.1 MOS/KG (273-304); Total Protein 7.3 G/DL (6.4-8.3)
[2020-02-21] MEDS ORDERED: DOCUSATE SODIUM 100 MG CAPSULE PO PRN (16:36)
[2020-02-21] MEDS ORDERED: ALUMINUM/MAGNES/SIMETH MAX STR 30 ML UDCUP PO PRN (16:36)
[2020-02-21] MEDS ORDERED: ONDANSETRON 4 MG/2 ML VIAL IV PRN (16:36)
[2020-02-21] MEDS ORDERED: SIMETHICONE CHEW 125 MG TABLET PO PRN (16:36)
[2020-02-21] MEDS ORDERED: diphenhydrAMINE CAP 25 MG CAPSULE PO PRN (16:36)
[2020-02-21] MEDS ORDERED: BISACODYL 5 MG TABLET PO PRN (16:36)
[2020-02-21] MEDS ORDERED: traZODone 50 MG TABLET PO PRN (16:36)
[2020-02-21] MEDS ORDERED: CALCIUM CARBONATE CHEW 500 MG TABLET PO PRN (16:36)
[2020-02-21] MEDS ORDERED: hydrALAZINE 20 MG/1 ML VIAL IV PRN (16:36)
[2020-02-21] MEDS ORDERED: LACTULOSE 20 GM/30 ML UDCUP PO PRN (16:36)
[2020-02-21] MEDS ORDERED: guaiFENesin/DM ER 600-30 MG TABLET PO PRN (16:36)
[2020-02-21] MEDS ORDERED: ZALEPLON 5 MG CAPSULE PO PRN (16:36)
[2020-02-21] MEDS ORDERED: MORPHINE 4 MG/1 ML VIAL IV PRN (16:36)
[2020-02-21] MEDS: IPRATROPIUM 500 MCG/2.5 ML NEB RESP TX SCH ×2 (18:20→20:35)
[2020-02-21] MEDS ORDERED: ALBUTEROL/IPRATROPIUM 3 ML NEB RESP TX SCH (19:00)
[2020-02-21] MEDS: CELECOXIB 200 MG CAPSULE PO SCH (20:59)
[2020-02-21] MEDS: ENOXAPARIN 40 MG/0.4 ML SYRINGE SUBCUT SCH (20:59)
[2020-02-21] MEDS ORDERED: rOPINIRole 0.25 MG TABLET PO SCH (21:00)
[2020-02-21 21:52] LABS: Apearance,Urine CLEAR (Clear); Bilirubin,Urine Negative (Negative); Blood, Urine Negative (Negative); Glucose,Urine (UA) Negative (Negative); Ketones,Urine Negative (Negative); Mucus,Urine Moderate /LPF (Occasional); Nitrite,Urine Negative (Negative); Protein,Urine Negative; RBC,Urine 1 /HPF (0-4); Urine Color Yellow (Yellow); Urine Specific Gravity 1.018 (1.001-1.035); Urine Urobilinogen < 2.0 EU/DL (0.2-1.0); WBC,Urine 2 /HPF (0-6)
[2020-02-22] MEDS: IPRATROPIUM 500 MCG/2.5 ML NEB RESP TX SCH ×4 (01:10→19:06)
[2020-02-22] MEDS: ACETAMINOPHEN 325 MG TABLET PO PRN (05:55)
[2020-02-22 06:30] LABS: Basophils # 0.1 10*3/uL (0.0-0.2); Basophils % 1.2 % (0.0-0.8); Eosinophils # 0.7 10*3/uL (0.0-0.87); Eosinophils % 9.9 % (0.00-10.9); Hematocrit 35.9 VOL% (42.0-52.0); Hemoglobin 12.5 GM/DL (14.0-18.0); Immature Granulocytes % 0.3 %; Immature Granulocytes Absolute 0.02 #; Lymphocytes # 1.6 10*3/uL (1.4-4.0); Mean Corpuscular HGB Conc 34.8 GM/DL (32-36); Mean Corpuscular Volume 84.1 FL (87-102); Mean Platelet Volume 9.5 FL (9.6-12.0); Monocytes % 9.8 % (1.7-12.7); Neutrophils % 56.8 % (38.7-73.9); Platelet Count 302 T/CUMM (130-400); Red Blood Count 4.27 MC/CUMM (3.8-5.5); White Blood Count 7.5 T/CUMM (4-12)
[2020-02-22 06:58] LABS: Albumin 3.4 G/DL (3.4-5.0); Bilirubin,Total 0.6 MG/DL (0.2-1.0); Calcium 8.9 MG/DL (8.5-10.1); Osmolality,Calculated 262.7 MOS/KG (273-304); Risk Ratio 2.71; Thyroid Stimulating Hormone 0.973 uIU/ml (0.358-3.74); Total Protein 6.5 G/DL (6.4-8.3); VLDL CHOLESTEROL 19.4 MG/DL
[2020-02-22] MEDS ORDERED: TIOTROPIUM BROMIDE INH SCH (09:00)
[2020-02-22] MEDS ORDERED: amLODIPine 5 MG TABLET PO SCH (09:00)
[2020-02-22] MEDS: LOSARTAN 50 MG TABLET PO SCH (10:21)
[2020-02-22] MEDS: CELECOXIB 200 MG CAPSULE PO SCH ×2 (10:22→21:28)
[2020-02-22] MEDS: PANTOPRAZOLE 40 MG TABLET PO SCH (10:22)
[2020-02-22] MEDS: MULTIVITAMIN (CENTRUM) TABLET PO SCH (10:22)
[2020-02-22] MEDS: ASPIRIN EC 81 MG TABLET PO SCH (10:22)
[2020-02-22] MEDS: SODIUM CHLORIDE 0.9% 1,000 ML IV SCH (17:20)
[2020-02-22] MEDS: ENOXAPARIN 40 MG/0.4 ML SYRINGE SUBCUT SCH (21:28)
[2020-02-23] MEDS: IPRATROPIUM 500 MCG/2.5 ML NEB RESP TX SCH ×4 (00:35→19:30)
[2020-02-23 06:55] LABS: Basophils # 0.1 10*3/uL (0.0-0.2); Eosinophils # 0.6 10*3/uL (0.0-0.87); Hematocrit 36.3 VOL% (42.0-52.0); Hemoglobin 12.6 GM/DL (14.0-18.0); Immature Granulocytes % 0.5 %; Immature Granulocytes Absolute 0.04 #; Lymphocytes # 1.4 10*3/uL (1.4-4.0); Lymphocytes % 15.8 % (21.2-54.2); Mean Corpuscular HGB Conc 34.7 GM/DL (32-36); Mean Platelet Volume 9.7 FL (9.6-12.0); Monocytes % 8.9 % (1.7-12.7); Neutrophils % 66.8 % (38.7-73.9); Platelet Count 320 T/CUMM (130-400); Red Blood Count 4.32 MC/CUMM (3.8-5.5); White Blood Count 8.9 T/CUMM (4-12)
[2020-02-23] MEDS: SODIUM CHLORIDE 0.9% 1,000 ML IV SCH ×2 (07:21→19:42)
[2020-02-23 07:22] LABS: Albumin 3.2 G/DL (3.4-5.0); Bilirubin,Total 0.5 MG/DL (0.2-1.0); Calcium 8.8 MG/DL (8.5-10.1); Osmolality,Calculated 259.9 MOS/KG (273-304); Total Protein 6.5 G/DL (6.4-8.3)
[2020-02-23] MEDS: PANTOPRAZOLE 40 MG TABLET PO SCH (09:26)
[2020-02-23] MEDS: ASPIRIN EC 81 MG TABLET PO SCH (09:26)
[2020-02-23] MEDS: MULTIVITAMIN (CENTRUM) TABLET PO SCH (09:26)
[2020-02-23] MEDS: LOSARTAN 50 MG TABLET PO SCH (09:26)
[2020-02-23] MEDS: CELECOXIB 200 MG CAPSULE PO SCH ×2 (09:26→21:07)
[2020-02-23] MEDS: rOPINIRole 0.25 MG TABLET PO SCH ×2 (17:31→21:07)
[2020-02-23] MEDS: ACETAMINOPHEN 325 MG TABLET PO PRN (19:28)
[2020-02-23] MEDS: ENOXAPARIN 40 MG/0.4 ML SYRINGE SUBCUT SCH (21:08)
[2020-02-24] MEDS: IPRATROPIUM 500 MCG/2.5 ML NEB RESP TX SCH ×3 (00:40→13:05)
[2020-02-24 06:07] LABS: Basophils # 0.1 10*3/uL (0.0-0.2); Basophils % 1.3 % (0.0-0.8); Eosinophils # 0.9 10*3/uL (0.0-0.87); Eosinophils % 12.4 % (0.00-10.9); Hematocrit 36.2 VOL% (42.0-52.0); Hemoglobin 12.7 GM/DL (14.0-18.0); Immature Granulocytes % 0.4 %; Immature Granulocytes Absolute 0.03 #; Lymphocytes # 1.3 10*3/uL (1.4-4.0); Mean Corpuscular HGB Conc 35.1 GM/DL (32-36); Mean Platelet Volume 8.9 FL (9.6-12.0); Neutrophils % 58.9 % (38.7-73.9); Platelet Count 262 T/CUMM (130-400); Red Blood Count 4.36 MC/CUMM (3.8-5.5); Red Cell Distribution Width 12.8 % (9.3-17.3)
[2020-02-24 06:29] LABS: Eosinophils 7 % (0-10); Hypochromasia Slight; Lymphocytes 18 % (20-55); Platelet Estimate Adequate; Segmented Neutrophils 68 % (50-85); Total Cells Counted 100
[2020-02-24 06:39] LABS: Albumin 3.2 G/DL (3.4-5.0); Calcium 8.5 MG/DL (8.5-10.1); Osmolality,Calculated 259.8 MOS/KG (273-304); Total Protein 6.2 G/DL (6.4-8.3)
[2020-02-24] MEDS: PANTOPRAZOLE 40 MG TABLET PO SCH (10:31)
[2020-02-24] MEDS: rOPINIRole 0.25 MG TABLET PO SCH ×2 (10:31→14:15)
[2020-02-24] MEDS: MULTIVITAMIN (CENTRUM) TABLET PO SCH (10:31)
[2020-02-24] MEDS: LOSARTAN 50 MG TABLET PO SCH (10:32)
[2020-02-24] MEDS: ASPIRIN EC 81 MG TABLET PO SCH (10:32)
[2020-02-24] MEDS: CELECOXIB 200 MG CAPSULE PO SCH (10:32)
[2020-02-24 11:39] VITALS: BP 143/86
[2020-02-24] MEDS: SODIUM CHLORIDE 0.9% 1,000 ML IV SCH (14:23)
[2020-02-26] MEDS ORDERED: ERGOCALCIFEROL 50,000 UNIT CAPSULE PO SCH (16:40)
== END 2020-02-24 14:45 | disposition hospice, home (50) | DRG 552 ==
LOC: N.ED 14:44 → SUATTDRO 16:36 → N.EDINP 16:36 → N.3E 19:39
PROVIDERS: ADMIT Hospitalist; ATTEND Internal Medicine

== ENCOUNTER 2020-03-16 14:43 | Inpatient (IN) ==
[2020-03-16] MEDS ORDERED: ALBUTEROL/IPRATROPIUM 3 ML NEB RESP TX STA (15:10)
[2020-03-16 15:23] LABS: Basophils # 0.1 10*3/uL (0.0-0.2); Basophils % 0.4 % (0.0-0.8); Eosinophils # 0.7 10*3/uL (0.0-0.87); Eosinophils % 4.6 % (0.00-10.9); Hematocrit 30.2 VOL% (42.0-52.0); Hemoglobin 9.3 GM/DL (14.0-18.0); Immature Granulocytes % 0.7 %; Lymphocytes # 0.8 10*3/uL (1.4-4.0); Lymphocytes % 5.4 % (21.2-54.2); Mean Corpuscular HGB Conc 30.8 GM/DL (32-36); Mean Corpuscular Volume 90.4 FL (87-102); Monocytes % 5.3 % (1.7-12.7); Neutrophils % 83.6 % (38.7-73.9); Platelet Count 598 T/CUMM (130-400); Red Blood Count 3.34 MC/CUMM (3.8-5.5); Red Cell Distribution Width 14.2 % (9.3-17.3); White Blood Count 14.5 T/CUMM (4-12)
[2020-03-16] MEDS ORDERED: cefTRIAXone 1,000 MG in SODIUM CHLORIDE 0.9% 100 ML IV STA (15:46)
[2020-03-16 15:59] LABS: Albumin 2.3 G/DL (3.4-5.0); Bilirubin,Total 0.4 MG/DL (0.2-1.0); Calcium 8.2 MG/DL (8.5-10.1); Osmolality,Calculated 271.2 MOS/KG (273-304); Total Protein 5.4 G/DL (6.4-8.3)
[2020-03-16] MEDS ORDERED: DEXTROSE 50% 25 GM/50 ML VIAL IV PRN (17:27)
[2020-03-16] MEDS ORDERED: ONDANSETRON 4 MG/2 ML VIAL IV PRN (17:27)
[2020-03-16] MEDS ORDERED: GLUCAGON 1 MG VIAL IM PRN (17:27)
[2020-03-16] MEDS: SODIUM CHLORIDE 0.9% 1,000 ML IV SCH (21:50)
[2020-03-16] MEDS: PIPERACILLIN/TAZOBACTAM 3,375 MG in SODIUM CHLORIDE 0.9% 100 ML IV SCH (22:07)
[2020-03-16] MEDS: TAMSULOSIN 0.4 MG CAPSULE PO SCH (22:35)
[2020-03-16] MEDS: ASCORBIC ACID 500 MG TABLET PO SCH (22:36)
[2020-03-16] MEDS: carvediloL 6.25 MG TABLET PO SCH (22:36)
[2020-03-16] MEDS: MAGNESIUM OXIDE 400 MG TABLET PO SCH (22:37)
[2020-03-16] MEDS: ACETAMINOPHEN 325 MG TABLET PO SCH (22:37)
[2020-03-16] MEDS: ATORVASTATIN 80 MG TABLET PO SCH (22:38)
[2020-03-16] MEDS: CALCIUM (CARBONATE) 600 MG TABLET PO SCH (22:39)
[2020-03-16] MEDS: LACTOBACILLUS ACIDOPHILUS/BULGARICUS CAPLET PO SCH (22:40)
[2020-03-16] MEDS: ENOXAPARIN 40 MG/0.4 ML SYRINGE SUBCUT SCH (22:48)
[2020-03-17] MEDS: ALBUTEROL/IPRATROPIUM 3 ML NEB RESP TX SCH ×5 (00:02→20:07)
[2020-03-17] MEDS: PIPERACILLIN/TAZOBACTAM 3,375 MG in SODIUM CHLORIDE 0.9% 100 ML IV SCH ×4 (02:34→23:14)
[2020-03-17 05:48] LABS: Basophils # 0.1 10*3/uL (0.0-0.2); Basophils % 0.7 % (0.0-0.8); Eosinophils # 0.5 10*3/uL (0.0-0.87); Eosinophils % 4.7 % (0.00-10.9); Hematocrit 24.9 VOL% (42.0-52.0); Hemoglobin 7.8 GM/DL (14.0-18.0); Lymphocytes # 1.1 10*3/uL (1.4-4.0); Lymphocytes % 10.8 % (21.2-54.2); Mean Corpuscular HGB Conc 31.3 GM/DL (32-36); Mean Corpuscular Volume 90.2 FL (87-102); Mean Platelet Volume 9.5 FL (9.6-12.0); Monocytes % 7.7 % (1.7-12.7); Neutrophils % 75.1 % (38.7-73.9); Platelet Count 485 T/CUMM (130-400); Red Blood Count 2.76 MC/CUMM (3.8-5.5); Red Cell Distribution Width 14.2 % (9.3-17.3); White Blood Count 9.9 T/CUMM (4-12)
[2020-03-17 06:01] LABS: Calcium 7.7 MG/DL (8.5-10.1); Osmolality,Calculated 271.8 MOS/KG (273-304)
[2020-03-17] MEDS: MAGNESIUM OXIDE 400 MG TABLET PO SCH ×3 (08:20→21:46)
[2020-03-17] MEDS: LACTOBACILLUS ACIDOPHILUS/BULGARICUS CAPLET PO SCH ×3 (08:20→21:45)
[2020-03-17] MEDS: MULTIVITAMIN (CENTRUM) TABLET PO SCH (08:20)
[2020-03-17] MEDS: ASCORBIC ACID 500 MG TABLET PO SCH ×2 (08:20→21:45)
[2020-03-17] MEDS: ZINC GLUCONATE 50 MG TABLET PO SCH (08:20)
[2020-03-17] MEDS: CALCIUM (CARBONATE) 600 MG TABLET PO SCH ×2 (08:21→21:51)
[2020-03-17] MEDS: ACETAMINOPHEN 325 MG TABLET PO SCH ×4 (08:21→21:47)
[2020-03-17] MEDS: TAMSULOSIN 0.4 MG CAPSULE PO SCH ×2 (08:21→21:46)
[2020-03-17] MEDS: LOSARTAN 50 MG TABLET PO SCH (08:21)
[2020-03-17] MEDS: FERROUS SULFATE 325 MG TABLET PO SCH (08:21)
[2020-03-17] MEDS: carvediloL 6.25 MG TABLET PO SCH ×2 (08:21→21:49)
[2020-03-17] MEDS: ASPIRIN EC 81 MG TABLET PO SCH (08:21)
[2020-03-17] MEDS ORDERED: ENOXAPARIN 40 MG/0.4 ML SYRINGE SUBCUT SCH (09:00)
[2020-03-17] MEDS: SODIUM CHLORIDE 0.9% 1,000 ML IV SCH ×3 (10:40→23:16)
[2020-03-17] MEDS: ATORVASTATIN 80 MG TABLET PO SCH (21:48)
[2020-03-17] MEDS: ENOXAPARIN 40 MG/0.4 ML SYRINGE SUBCUT SCH (21:53)
[2020-03-17] MEDS: ZINC OXIDE PASTE 113 GM TUBE TOP SCH (21:56)
[2020-03-18] MEDS: ALBUTEROL/IPRATROPIUM 3 ML NEB RESP TX SCH ×4 (00:39→20:07)
[2020-03-18] MEDS: PIPERACILLIN/TAZOBACTAM 3,375 MG in SODIUM CHLORIDE 0.9% 100 ML IV SCH ×3 (05:51→21:14)
[2020-03-18 06:13] LABS: Basophils # 0.1 10*3/uL (0.0-0.2); Basophils % 0.8 % (0.0-0.8); Eosinophils # 0.7 10*3/uL (0.0-0.87); Eosinophils % 8.4 % (0.00-10.9); Hematocrit 24.5 VOL% (42.0-52.0); Hemoglobin 7.8 GM/DL (14.0-18.0); Immature Granulocytes % 0.5 %; Immature Granulocytes Absolute 0.04 #; Lymphocytes # 0.9 10*3/uL (1.4-4.0); Lymphocytes % 11.1 % (21.2-54.2); Mean Corpuscular HGB Conc 31.8 GM/DL (32-36); Mean Corpuscular Volume 86.9 FL (87-102); Mean Platelet Volume 9.4 FL (9.6-12.0); Monocytes % 7.6 % (1.7-12.7); Neutrophils % 71.6 % (38.7-73.9); Platelet Count 419 T/CUMM (130-400); Red Blood Count 2.82 MC/CUMM (3.8-5.5); Red Cell Distribution Width 14.1 % (9.3-17.3); White Blood Count 8.5 T/CUMM (4-12)
[2020-03-18 06:49] LABS: Calcium 7.6 MG/DL (8.5-10.1); Osmolality,Calculated 266.1 MOS/KG (273-304)
[2020-03-18] MEDS: ASCORBIC ACID 500 MG TABLET PO SCH ×2 (09:09→20:24)
[2020-03-18] MEDS: MAGNESIUM OXIDE 400 MG TABLET PO SCH ×3 (09:09→20:24)
[2020-03-18] MEDS: POTASSIUM CHLORIDE 20 MEQ TABLET PO PRN ×3 (09:09→17:10)
[2020-03-18] MEDS: LOSARTAN 50 MG TABLET PO SCH (09:09)
[2020-03-18] MEDS: TAMSULOSIN 0.4 MG CAPSULE PO SCH ×2 (09:09→20:24)
[2020-03-18] MEDS: ACETAMINOPHEN 325 MG TABLET PO SCH ×4 (09:09→20:24)
[2020-03-18] MEDS: MULTIVITAMIN (CENTRUM) TABLET PO SCH (09:09)
[2020-03-18] MEDS: LACTOBACILLUS ACIDOPHILUS/BULGARICUS CAPLET PO SCH ×3 (09:09→20:23)
[2020-03-18] MEDS: ZINC GLUCONATE 50 MG TABLET PO SCH (09:09)
[2020-03-18] MEDS: CALCIUM (CARBONATE) 600 MG TABLET PO SCH ×2 (09:09→20:24)
[2020-03-18] MEDS: ASPIRIN EC 81 MG TABLET PO SCH (09:10)
[2020-03-18] MEDS: FERROUS SULFATE 325 MG TABLET PO SCH (09:10)
[2020-03-18] MEDS: ZINC OXIDE PASTE 113 GM TUBE TOP SCH ×2 (09:10→20:46)
[2020-03-18] MEDS: carvediloL 6.25 MG TABLET PO SCH ×2 (09:10→20:24)
[2020-03-18] MEDS: SODIUM CHLORIDE 0.9% 1,000 ML IV SCH (11:55)
[2020-03-18] MEDS ORDERED: TUBERCULIN SKIN TEST 0.1 ML SYRINGE INTRADERM ONE (13:28)
[2020-03-18] MEDS: ATORVASTATIN 80 MG TABLET PO SCH (20:24)
[2020-03-18] MEDS: ENOXAPARIN 40 MG/0.4 ML SYRINGE SUBCUT SCH (20:26)
[2020-03-19] MEDS: ALBUTEROL/IPRATROPIUM 3 ML NEB RESP TX SCH ×4 (01:06→19:37)
[2020-03-19] MEDS: PIPERACILLIN/TAZOBACTAM 3,375 MG in SODIUM CHLORIDE 0.9% 100 ML IV SCH ×3 (06:37→21:18)
[2020-03-19 07:31] LABS: Basophils # 0.1 10*3/uL (0.0-0.2); Basophils % 0.7 % (0.0-0.8); Eosinophils # 0.8 10*3/uL (0.0-0.87); Eosinophils % 7.3 % (0.00-10.9); Hematocrit 26.3 VOL% (42.0-52.0); Hemoglobin 8.7 GM/DL (14.0-18.0); Immature Granulocytes % 0.5 %; Immature Granulocytes Absolute 0.06 #; Lymphocytes % 8.4 % (21.2-54.2); Mean Corpuscular HGB Conc 33.1 GM/DL (32-36); Mean Corpuscular Volume 85.9 FL (87-102); Mean Platelet Volume 9.3 FL (9.6-12.0); Neutrophils % 76.1 % (38.7-73.9); Platelet Count 419 T/CUMM (130-400); Red Blood Count 3.06 MC/CUMM (3.8-5.5); Red Cell Distribution Width 13.9 % (9.3-17.3); White Blood Count 11.4 T/CUMM (4-12)
[2020-03-19 07:45] LABS: Calcium 8.6 MG/DL (8.5-10.1); Osmolality,Calculated 257.8 MOS/KG (273-304)
[2020-03-19] MEDS: CALCIUM (CARBONATE) 600 MG TABLET PO SCH ×2 (09:12→20:50)
[2020-03-19] MEDS: ASCORBIC ACID 500 MG TABLET PO SCH ×2 (09:13→20:50)
[2020-03-19] MEDS: MULTIVITAMIN (CENTRUM) TABLET PO SCH (09:13)
[2020-03-19] MEDS: MAGNESIUM OXIDE 400 MG TABLET PO SCH ×3 (09:13→20:51)
[2020-03-19] MEDS: TAMSULOSIN 0.4 MG CAPSULE PO SCH ×2 (09:13→20:51)
[2020-03-19] MEDS: carvediloL 6.25 MG TABLET PO SCH ×2 (09:13→20:50)
[2020-03-19] MEDS: LOSARTAN 50 MG TABLET PO SCH (09:13)
[2020-03-19] MEDS: ACETAMINOPHEN 325 MG TABLET PO SCH ×4 (09:13→20:50)
[2020-03-19] MEDS: ASPIRIN EC 81 MG TABLET PO SCH (09:13)
[2020-03-19] MEDS: LACTOBACILLUS ACIDOPHILUS/BULGARICUS CAPLET PO SCH ×3 (09:13→20:50)
[2020-03-19] MEDS: FERROUS SULFATE 325 MG TABLET PO SCH (09:13)
[2020-03-19] MEDS: ZINC OXIDE PASTE 113 GM TUBE TOP SCH ×2 (09:14→20:51)
[2020-03-19] MEDS: ZINC GLUCONATE 50 MG TABLET PO SCH (09:15)
[2020-03-19] MEDS: SODIUM CHLORIDE 0.9% 1,000 ML IV SCH ×2 (10:52→15:36)
[2020-03-19] MEDS: ATORVASTATIN 80 MG TABLET PO SCH (20:51)
[2020-03-19] MEDS: ENOXAPARIN 40 MG/0.4 ML SYRINGE SUBCUT SCH (20:51)
[2020-03-20] MEDS: ALBUTEROL/IPRATROPIUM 3 ML NEB RESP TX SCH ×4 (01:10→19:16)
[2020-03-20 06:33] LABS: Basophils # 0.1 10*3/uL (0.0-0.2); Basophils % 0.6 % (0.0-0.8); Eosinophils # 0.8 10*3/uL (0.0-0.87); Eosinophils % 7.1 % (0.00-10.9); Hematocrit 26.5 VOL% (42.0-52.0); Hemoglobin 8.6 GM/DL (14.0-18.0); Immature Granulocytes % 0.6 %; Immature Granulocytes Absolute 0.06 #; Lymphocytes % 9.5 % (21.2-54.2); Mean Corpuscular HGB Conc 32.5 GM/DL (32-36); Mean Corpuscular Volume 85.2 FL (87-102); Mean Platelet Volume 9.6 FL (9.6-12.0); Monocytes % 7.5 % (1.7-12.7); Neutrophils % 74.7 % (38.7-73.9); Platelet Count 411 T/CUMM (130-400); Red Blood Count 3.11 MC/CUMM (3.8-5.5); Red Cell Distribution Width 13.8 % (9.3-17.3); White Blood Count 10.8 T/CUMM (4-12)
[2020-03-20] MEDS: PIPERACILLIN/TAZOBACTAM 3,375 MG in SODIUM CHLORIDE 0.9% 100 ML IV SCH ×3 (06:34→21:21)
[2020-03-20 06:52] LABS: Calcium 8.4 MG/DL (8.5-10.1); Osmolality,Calculated 252.2 MOS/KG (273-304)
[2020-03-20] MEDS: MULTIVITAMIN (CENTRUM) TABLET PO SCH (09:42)
[2020-03-20] MEDS: ZINC GLUCONATE 50 MG TABLET PO SCH (09:42)
[2020-03-20] MEDS: CALCIUM (CARBONATE) 600 MG TABLET PO SCH ×2 (09:42→21:20)
[2020-03-20] MEDS: ASPIRIN EC 81 MG TABLET PO SCH (09:43)
[2020-03-20] MEDS: FERROUS SULFATE 325 MG TABLET PO SCH (09:43)
[2020-03-20] MEDS: ZINC OXIDE PASTE 113 GM TUBE TOP SCH ×2 (09:43→21:21)
[2020-03-20] MEDS: carvediloL 6.25 MG TABLET PO SCH ×2 (09:43→21:23)
[2020-03-20] MEDS: MAGNESIUM OXIDE 400 MG TABLET PO SCH ×3 (09:43→21:20)
[2020-03-20] MEDS: ASCORBIC ACID 500 MG TABLET PO SCH ×2 (09:43→21:21)
[2020-03-20] MEDS: LACTOBACILLUS ACIDOPHILUS/BULGARICUS CAPLET PO SCH ×3 (09:43→21:20)
[2020-03-20] MEDS: TAMSULOSIN 0.4 MG CAPSULE PO SCH ×2 (09:43→21:20)
[2020-03-20] MEDS: LOSARTAN 50 MG TABLET PO SCH (09:43)
[2020-03-20] MEDS: ACETAMINOPHEN 325 MG TABLET PO SCH ×4 (09:44→21:20)
[2020-03-20] MEDS: SODIUM CHLORIDE 0.9% 1,000 ML IV SCH (14:34)
[2020-03-20] MEDS: ATORVASTATIN 80 MG TABLET PO SCH (21:20)
[2020-03-20] MEDS: ENOXAPARIN 40 MG/0.4 ML SYRINGE SUBCUT SCH (21:20)
[2020-03-21] MEDS: ALBUTEROL/IPRATROPIUM 3 ML NEB RESP TX SCH ×4 (02:13→19:22)
[2020-03-21 04:39] LABS: Basophils # 0.1 10*3/uL (0.0-0.2); Basophils % 0.7 % (0.0-0.8); Eosinophils # 0.8 10*3/uL (0.0-0.87); Eosinophils % 6.5 % (0.00-10.9); Hematocrit 29.4 VOL% (42.0-52.0); Hemoglobin 9.7 GM/DL (14.0-18.0); Immature Granulocytes % 0.6 %; Immature Granulocytes Absolute 0.07 #; Lymphocytes # 1.1 10*3/uL (1.4-4.0); Lymphocytes % 9.2 % (21.2-54.2); Mean Corpuscular Volume 84.7 FL (87-102); Mean Platelet Volume 9.5 FL (9.6-12.0); Monocytes % 8.4 % (1.7-12.7); Neutrophils % 74.6 % (38.7-73.9); Platelet Count 429 T/CUMM (130-400); Red Blood Count 3.47 MC/CUMM (3.8-5.5); White Blood Count 11.7 T/CUMM (4-12)
[2020-03-21 04:56] LABS: Calcium 8.6 MG/DL (8.5-10.1); Osmolality,Calculated 247.5 MOS/KG (273-304)
[2020-03-21] MEDS: PIPERACILLIN/TAZOBACTAM 3,375 MG in SODIUM CHLORIDE 0.9% 100 ML IV SCH ×3 (05:53→21:29)
[2020-03-21] MEDS: LOSARTAN 50 MG TABLET PO SCH (09:57)
[2020-03-21] MEDS: carvediloL 6.25 MG TABLET PO SCH ×2 (09:58→20:09)
[2020-03-21] MEDS: ZINC GLUCONATE 50 MG TABLET PO SCH (09:58)
[2020-03-21] MEDS: ACETAMINOPHEN 325 MG TABLET PO SCH ×4 (09:58→20:08)
[2020-03-21] MEDS: MAGNESIUM OXIDE 400 MG TABLET PO SCH ×3 (09:58→20:08)
[2020-03-21] MEDS: LACTOBACILLUS ACIDOPHILUS/BULGARICUS CAPLET PO SCH ×3 (09:58→20:08)
[2020-03-21] MEDS: MULTIVITAMIN (CENTRUM) TABLET PO SCH (09:58)
[2020-03-21] MEDS: FERROUS SULFATE 325 MG TABLET PO SCH (10:01)
[2020-03-21] MEDS: ASPIRIN EC 81 MG TABLET PO SCH (10:01)
[2020-03-21] MEDS: TAMSULOSIN 0.4 MG CAPSULE PO SCH ×2 (10:01→20:08)
[2020-03-21] MEDS: CALCIUM (CARBONATE) 600 MG TABLET PO SCH ×2 (10:01→20:09)
[2020-03-21] MEDS: ASCORBIC ACID 500 MG TABLET PO SCH ×2 (10:01→20:08)
[2020-03-21] MEDS: ZINC OXIDE PASTE 113 GM TUBE TOP SCH ×2 (10:02→20:10)
[2020-03-21] MEDS: SODIUM CHLORIDE 0.9% 1,000 ML IV SCH (17:00)
[2020-03-21] MEDS: ENOXAPARIN 40 MG/0.4 ML SYRINGE SUBCUT SCH (20:08)
[2020-03-21] MEDS: ATORVASTATIN 80 MG TABLET PO SCH (20:08)
[2020-03-22] MEDS: ALBUTEROL/IPRATROPIUM 3 ML NEB RESP TX SCH ×4 (00:35→19:18)
[2020-03-22] MEDS: PIPERACILLIN/TAZOBACTAM 3,375 MG in SODIUM CHLORIDE 0.9% 100 ML IV SCH ×3 (05:54→21:14)
[2020-03-22] MEDS: ZINC OXIDE PASTE 113 GM TUBE TOP SCH ×2 (09:31→20:22)
[2020-03-22] MEDS: LOSARTAN 50 MG TABLET PO SCH (09:42)
[2020-03-22] MEDS: carvediloL 6.25 MG TABLET PO SCH ×2 (09:42→20:21)
[2020-03-22] MEDS: CALCIUM (CARBONATE) 600 MG TABLET PO SCH ×2 (09:45→20:21)
[2020-03-22] MEDS: MAGNESIUM OXIDE 400 MG TABLET PO SCH ×3 (09:46→20:21)
[2020-03-22] MEDS: LACTOBACILLUS ACIDOPHILUS/BULGARICUS CAPLET PO SCH ×3 (09:46→20:21)
[2020-03-22] MEDS: ZINC GLUCONATE 50 MG TABLET PO SCH (09:47)
[2020-03-22] MEDS: MULTIVITAMIN (CENTRUM) TABLET PO SCH (09:47)
[2020-03-22] MEDS: ASCORBIC ACID 500 MG TABLET PO SCH ×2 (09:47→20:21)
[2020-03-22] MEDS: ACETAMINOPHEN 325 MG TABLET PO SCH ×4 (09:47→20:21)
[2020-03-22] MEDS: ASPIRIN EC 81 MG TABLET PO SCH (09:47)
[2020-03-22] MEDS: TAMSULOSIN 0.4 MG CAPSULE PO SCH ×2 (09:48→20:21)
[2020-03-22] MEDS: FERROUS SULFATE 325 MG TABLET PO SCH (09:48)
[2020-03-22] MEDS: ENOXAPARIN 40 MG/0.4 ML SYRINGE SUBCUT SCH (20:20)
[2020-03-22] MEDS: ATORVASTATIN 80 MG TABLET PO SCH (20:21)
[2020-03-22] MEDS: SODIUM CHLORIDE 0.9% 1,000 ML IV SCH (20:22)
[2020-03-23] MEDS: ALBUTEROL/IPRATROPIUM 3 ML NEB RESP TX SCH ×4 (00:18→20:11)
[2020-03-23] MEDS: PIPERACILLIN/TAZOBACTAM 3,375 MG in SODIUM CHLORIDE 0.9% 100 ML IV SCH ×3 (05:09→22:58)
[2020-03-23 06:28] LABS: Calcium 9.3 MG/DL (8.5-10.1); Osmolality,Calculated 259.2 MOS/KG (273-304)
[2020-03-23] MEDS: CALCIUM (CARBONATE) 600 MG TABLET PO SCH ×2 (08:05→21:58)
[2020-03-23] MEDS: MULTIVITAMIN (CENTRUM) TABLET PO SCH (08:05)
[2020-03-23] MEDS: LACTOBACILLUS ACIDOPHILUS/BULGARICUS CAPLET PO SCH ×3 (08:05→21:58)
[2020-03-23] MEDS: ASPIRIN EC 81 MG TABLET PO SCH (08:05)
[2020-03-23] MEDS: carvediloL 6.25 MG TABLET PO SCH ×2 (08:05→21:58)
[2020-03-23] MEDS: TAMSULOSIN 0.4 MG CAPSULE PO SCH ×2 (08:05→21:59)
[2020-03-23] MEDS: ACETAMINOPHEN 325 MG TABLET PO SCH ×4 (08:05→21:56)
[2020-03-23] MEDS: ASCORBIC ACID 500 MG TABLET PO SCH ×2 (08:05→21:59)
[2020-03-23] MEDS: MAGNESIUM OXIDE 400 MG TABLET PO SCH ×3 (08:05→21:59)
[2020-03-23] MEDS: FERROUS SULFATE 325 MG TABLET PO SCH (08:06)
[2020-03-23] MEDS: LOSARTAN 50 MG TABLET PO SCH (08:06)
[2020-03-23] MEDS: ZINC GLUCONATE 50 MG TABLET PO SCH (08:06)
[2020-03-23] MEDS: ZINC OXIDE PASTE 113 GM TUBE TOP SCH ×2 (08:06→21:58)
[2020-03-23] MEDS: ENOXAPARIN 40 MG/0.4 ML SYRINGE SUBCUT SCH (21:59)
[2020-03-23] MEDS: ATORVASTATIN 80 MG TABLET PO SCH (21:59)
[2020-03-23] MEDS: SODIUM CHLORIDE 0.9% 1,000 ML IV SCH (23:18)
[2020-03-24] MEDS: ALBUTEROL/IPRATROPIUM 3 ML NEB RESP TX SCH ×4 (00:22→19:55)
[2020-03-24] MEDS: PIPERACILLIN/TAZOBACTAM 3,375 MG in SODIUM CHLORIDE 0.9% 100 ML IV SCH (05:19)
[2020-03-24 07:14] LABS: Basophils # 0.1 10*3/uL (0.0-0.2); Basophils % 0.4 % (0.0-0.8); Eosinophils # 0.2 10*3/uL (0.0-0.87); Eosinophils % 1.4 % (0.00-10.9); Hematocrit 30.6 VOL% (42.0-52.0); Hemoglobin 9.7 GM/DL (14.0-18.0); Immature Granulocytes % 0.8 %; Immature Granulocytes Absolute 0.13 #; Lymphocytes # 0.9 10*3/uL (1.4-4.0); Lymphocytes % 5.3 % (21.2-54.2); Mean Corpuscular HGB Conc 31.7 GM/DL (32-36); Mean Corpuscular Volume 86.4 FL (87-102); Mean Platelet Volume 9.7 FL (9.6-12.0); Monocytes % 6.1 % (1.7-12.7); Platelet Count 544 T/CUMM (130-400); Red Blood Count 3.54 MC/CUMM (3.8-5.5); Red Cell Distribution Width 14.6 % (9.3-17.3); White Blood Count 16.1 T/CUMM (4-12)
[2020-03-24 07:28] LABS: Calcium 9.5 MG/DL (8.5-10.1); Osmolality,Calculated 263.2 MOS/KG (273-304)
[2020-03-24] MEDS: MULTIVITAMIN (CENTRUM) TABLET PO SCH (10:23)
[2020-03-24] MEDS: ACETAMINOPHEN 325 MG TABLET PO SCH ×4 (10:23→20:13)
[2020-03-24] MEDS: LACTOBACILLUS ACIDOPHILUS/BULGARICUS CAPLET PO SCH ×3 (10:24→20:13)
[2020-03-24] MEDS: TAMSULOSIN 0.4 MG CAPSULE PO SCH ×2 (10:24→20:16)
[2020-03-24] MEDS: carvediloL 6.25 MG TABLET PO SCH ×2 (10:24→20:16)
[2020-03-24] MEDS: CALCIUM (CARBONATE) 600 MG TABLET PO SCH ×2 (10:24→20:16)
[2020-03-24] MEDS: FERROUS SULFATE 325 MG TABLET PO SCH (10:25)
[2020-03-24] MEDS: MAGNESIUM OXIDE 400 MG TABLET PO SCH ×3 (10:25→20:16)
[2020-03-24] MEDS: ASPIRIN EC 81 MG TABLET PO SCH (10:25)
[2020-03-24] MEDS: ASCORBIC ACID 500 MG TABLET PO SCH ×2 (10:25→20:17)
[2020-03-24] MEDS: ZINC GLUCONATE 50 MG TABLET PO SCH (10:25)
[2020-03-24] MEDS: LOSARTAN 50 MG TABLET PO SCH (10:27)
[2020-03-24] MEDS: SODIUM CHLORIDE 0.9% 1,000 ML IV SCH (11:37)
[2020-03-24] MEDS: ZINC OXIDE PASTE 113 GM TUBE TOP SCH ×2 (11:37→20:16)
[2020-03-24] MEDS: ATORVASTATIN 80 MG TABLET PO SCH (20:16)
[2020-03-24] MEDS: ENOXAPARIN 40 MG/0.4 ML SYRINGE SUBCUT SCH (20:16)
[2020-03-25] MEDS: ALBUTEROL/IPRATROPIUM 3 ML NEB RESP TX SCH ×4 (01:57→18:55)
[2020-03-25 05:13] LABS: Basophils # 0.1 10*3/uL (0.0-0.2); Basophils % 0.7 % (0.0-0.8); Eosinophils # 0.5 10*3/uL (0.0-0.87); Eosinophils % 4.3 % (0.00-10.9); Hematocrit 26.2 VOL% (42.0-52.0); Hemoglobin 8.3 GM/DL (14.0-18.0); Immature Granulocytes % 0.6 %; Immature Granulocytes Absolute 0.07 #; Lymphocytes # 0.9 10*3/uL (1.4-4.0); Lymphocytes % 7.8 % (21.2-54.2); Mean Corpuscular HGB Conc 31.7 GM/DL (32-36); Mean Corpuscular Volume 85.9 FL (87-102); Mean Platelet Volume 9.8 FL (9.6-12.0); Monocytes % 6.8 % (1.7-12.7); Neutrophils % 79.8 % (38.7-73.9); Platelet Count 412 T/CUMM (130-400); Red Blood Count 3.05 MC/CUMM (3.8-5.5); Red Cell Distribution Width 14.6 % (9.3-17.3)
[2020-03-25 05:41] LABS: Calcium 8.6 MG/DL (8.5-10.1); Osmolality,Calculated 271.7 MOS/KG (273-304)
[2020-03-25] MEDS: LACTOBACILLUS ACIDOPHILUS/BULGARICUS CAPLET PO SCH ×3 (08:27→21:30)
[2020-03-25] MEDS: CALCIUM (CARBONATE) 600 MG TABLET PO SCH ×2 (08:27→21:29)
[2020-03-25] MEDS: ACETAMINOPHEN 325 MG TABLET PO SCH ×4 (08:28→21:30)
[2020-03-25] MEDS: MAGNESIUM OXIDE 400 MG TABLET PO SCH ×3 (08:28→21:30)
[2020-03-25] MEDS: TAMSULOSIN 0.4 MG CAPSULE PO SCH ×2 (08:28→21:29)
[2020-03-25] MEDS: ASCORBIC ACID 500 MG TABLET PO SCH ×2 (08:28→21:29)
[2020-03-25] MEDS: carvediloL 6.25 MG TABLET PO SCH ×2 (08:28→21:30)
[2020-03-25] MEDS: LOSARTAN 50 MG TABLET PO SCH (08:28)
[2020-03-25] MEDS: ZINC OXIDE PASTE 113 GM TUBE TOP SCH ×2 (08:29→21:31)
[2020-03-25] MEDS: MULTIVITAMIN (CENTRUM) TABLET PO SCH (08:29)
[2020-03-25] MEDS: FERROUS SULFATE 325 MG TABLET PO SCH (08:29)
[2020-03-25] MEDS: ZINC GLUCONATE 50 MG TABLET PO SCH (08:29)
[2020-03-25] MEDS: ASPIRIN EC 81 MG TABLET PO SCH (08:29)
[2020-03-25] MEDS: SODIUM CHLORIDE 0.9% 1,000 ML IV SCH (17:48)
[2020-03-25] MEDS: ATORVASTATIN 80 MG TABLET PO SCH (21:30)
[2020-03-25] MEDS: ENOXAPARIN 40 MG/0.4 ML SYRINGE SUBCUT SCH (21:38)
[2020-03-26] MEDS: ALBUTEROL/IPRATROPIUM 3 ML NEB RESP TX SCH ×4 (00:08→19:00)
[2020-03-26 06:15] LABS: Basophils # 0.1 10*3/uL (0.0-0.2); Basophils % 0.6 % (0.0-0.8); Eosinophils # 0.4 10*3/uL (0.0-0.87); Eosinophils % 4.7 % (0.00-10.9); Hematocrit 24.5 VOL% (42.0-52.0); Hemoglobin 7.7 GM/DL (14.0-18.0); Immature Granulocytes % 0.8 %; Immature Granulocytes Absolute 0.07 #; Lymphocytes # 0.9 10*3/uL (1.4-4.0); Lymphocytes % 10.2 % (21.2-54.2); Mean Corpuscular HGB Conc 31.4 GM/DL (32-36); Mean Corpuscular Volume 87.2 FL (87-102); Mean Platelet Volume 9.9 FL (9.6-12.0); Monocytes % 7.6 % (1.7-12.7); Neutrophils % 76.1 % (38.7-73.9); Platelet Count 350 T/CUMM (130-400); Red Blood Count 2.81 MC/CUMM (3.8-5.5); Red Cell Distribution Width 14.3 % (9.3-17.3); White Blood Count 8.4 T/CUMM (4-12)
[2020-03-26 06:37] LABS: Calcium 8.9 MG/DL (8.5-10.1); Osmolality,Calculated 267.5 MOS/KG (273-304)
[2020-03-26] MEDS: MULTIVITAMIN (CENTRUM) TABLET PO SCH (09:10)
[2020-03-26] MEDS: MAGNESIUM OXIDE 400 MG TABLET PO SCH ×3 (09:10→21:50)
[2020-03-26] MEDS: ZINC OXIDE PASTE 113 GM TUBE TOP SCH ×2 (09:10→21:55)
[2020-03-26] MEDS: CALCIUM (CARBONATE) 600 MG TABLET PO SCH ×2 (09:10→21:49)
[2020-03-26] MEDS: ACETAMINOPHEN 325 MG TABLET PO SCH ×4 (09:11→21:49)
[2020-03-26] MEDS: LOSARTAN 50 MG TABLET PO SCH (09:11)
[2020-03-26] MEDS: LACTOBACILLUS ACIDOPHILUS/BULGARICUS CAPLET PO SCH ×3 (09:11→21:50)
[2020-03-26] MEDS: TAMSULOSIN 0.4 MG CAPSULE PO SCH ×2 (09:12→21:49)
[2020-03-26] MEDS: carvediloL 6.25 MG TABLET PO SCH ×2 (09:12→21:50)
[2020-03-26] MEDS: ZINC GLUCONATE 50 MG TABLET PO SCH (09:12)
[2020-03-26] MEDS: ASCORBIC ACID 500 MG TABLET PO SCH ×2 (09:12→21:50)
[2020-03-26] MEDS: ASPIRIN EC 81 MG TABLET PO SCH (09:12)
[2020-03-26] MEDS: FERROUS SULFATE 325 MG TABLET PO SCH (09:12)
[2020-03-26] MEDS: SODIUM CHLORIDE 0.9% 1,000 ML IV SCH ×2 (14:02→14:03)
[2020-03-26] MEDS: ENOXAPARIN 40 MG/0.4 ML SYRINGE SUBCUT SCH (21:50)
[2020-03-26] MEDS: ATORVASTATIN 80 MG TABLET PO SCH (21:50)
[2020-03-26] MEDS: POTASSIUM CHLORIDE 20 MEQ TABLET PO PRN (21:50)
[2020-03-27] MEDS: ALBUTEROL/IPRATROPIUM 3 ML NEB RESP TX SCH ×4 (00:46→19:00)
[2020-03-27] MEDS: POTASSIUM CHLORIDE 20 MEQ TABLET PO PRN ×3 (02:08→21:44)
[2020-03-27 05:26] LABS: Basophils # 0.1 10*3/uL (0.0-0.2); Basophils % 0.8 % (0.0-0.8); Eosinophils # 0.6 10*3/uL (0.0-0.87); Eosinophils % 8.3 % (0.00-10.9); Immature Granulocytes % 0.5 %; Immature Granulocytes Absolute 0.04 #; Lymphocytes # 0.9 10*3/uL (1.4-4.0); Lymphocytes % 11.8 % (21.2-54.2); Mean Corpuscular HGB Conc 30.8 GM/DL (32-36); Mean Corpuscular Volume 87.5 FL (87-102); Mean Platelet Volume 9.9 FL (9.6-12.0); Monocytes % 7.5 % (1.7-12.7); Neutrophils % 71.1 % (38.7-73.9); Platelet Count 347 T/CUMM (130-400); Red Blood Count 2.97 MC/CUMM (3.8-5.5); Red Cell Distribution Width 14.2 % (9.3-17.3); White Blood Count 7.7 T/CUMM (4-12)
[2020-03-27 05:39] LABS: Calcium 8.7 MG/DL (8.5-10.1)
[2020-03-27] MEDS: ZINC GLUCONATE 50 MG TABLET PO SCH (08:13)
[2020-03-27] MEDS: MAGNESIUM OXIDE 400 MG TABLET PO SCH ×3 (08:13→21:44)
[2020-03-27] MEDS: LOSARTAN 50 MG TABLET PO SCH (08:13)
[2020-03-27] MEDS: LACTOBACILLUS ACIDOPHILUS/BULGARICUS CAPLET PO SCH ×3 (08:14→21:43)
[2020-03-27] MEDS: ASPIRIN EC 81 MG TABLET PO SCH (08:14)
[2020-03-27] MEDS: MULTIVITAMIN (CENTRUM) TABLET PO SCH (08:14)
[2020-03-27] MEDS: ACETAMINOPHEN 325 MG TABLET PO SCH ×4 (08:14→21:44)
[2020-03-27] MEDS: CALCIUM (CARBONATE) 600 MG TABLET PO SCH ×2 (08:14→21:43)
[2020-03-27] MEDS: FERROUS SULFATE 325 MG TABLET PO SCH (08:14)
[2020-03-27] MEDS: carvediloL 6.25 MG TABLET PO SCH ×2 (08:14→21:44)
[2020-03-27] MEDS: TAMSULOSIN 0.4 MG CAPSULE PO SCH ×2 (08:15→21:44)
[2020-03-27] MEDS: ZINC OXIDE PASTE 113 GM TUBE TOP SCH ×2 (08:15→21:45)
[2020-03-27] MEDS: ASCORBIC ACID 500 MG TABLET PO SCH ×2 (08:15→21:44)
[2020-03-27] MEDS: SODIUM CHLORIDE 0.9% 1,000 ML IV SCH ×2 (15:50→15:51)
[2020-03-27] MEDS: ENOXAPARIN 40 MG/0.4 ML SYRINGE SUBCUT SCH (21:43)
[2020-03-27] MEDS: ATORVASTATIN 80 MG TABLET PO SCH (21:44)
[2020-03-28] MEDS: ALBUTEROL/IPRATROPIUM 3 ML NEB RESP TX SCH ×4 (00:10→19:04)
[2020-03-28] MEDS: LACTOBACILLUS ACIDOPHILUS/BULGARICUS CAPLET PO SCH ×3 (09:19→21:23)
[2020-03-28] MEDS: carvediloL 6.25 MG TABLET PO SCH ×2 (09:19→21:23)
[2020-03-28] MEDS: MULTIVITAMIN (CENTRUM) TABLET PO SCH (09:19)
[2020-03-28] MEDS: FERROUS SULFATE 325 MG TABLET PO SCH (09:19)
[2020-03-28] MEDS: MAGNESIUM OXIDE 400 MG TABLET PO SCH ×3 (09:19→21:23)
[2020-03-28] MEDS: CALCIUM (CARBONATE) 600 MG TABLET PO SCH ×2 (09:19→21:23)
[2020-03-28] MEDS: LOSARTAN 50 MG TABLET PO SCH (09:19)
[2020-03-28] MEDS: ACETAMINOPHEN 325 MG TABLET PO SCH ×4 (09:19→21:23)
[2020-03-28] MEDS: ASPIRIN EC 81 MG TABLET PO SCH (09:20)
[2020-03-28] MEDS: ZINC GLUCONATE 50 MG TABLET PO SCH (09:20)
[2020-03-28] MEDS: TAMSULOSIN 0.4 MG CAPSULE PO SCH ×2 (09:20→21:23)
[2020-03-28] MEDS: ZINC OXIDE PASTE 113 GM TUBE TOP SCH ×2 (09:21→21:23)
[2020-03-28] MEDS: ASCORBIC ACID 500 MG TABLET PO SCH ×2 (12:57→21:22)
[2020-03-28] MEDS: ATORVASTATIN 80 MG TABLET PO SCH (21:22)
[2020-03-28] MEDS: ENOXAPARIN 40 MG/0.4 ML SYRINGE SUBCUT SCH (21:23)
[2020-03-29] MEDS: ALBUTEROL/IPRATROPIUM 3 ML NEB RESP TX SCH ×4 (01:58→19:18)
[2020-03-29] MEDS: SODIUM CHLORIDE 0.9% 1,000 ML IV SCH (04:42)
[2020-03-29 05:22] LABS: Basophils % 0.6 % (0.0-0.8); Eosinophils # 0.9 10*3/uL (0.0-0.87); Eosinophils % 13.3 % (0.00-10.9); Hematocrit 25.5 VOL% (42.0-52.0); Hemoglobin 8.1 GM/DL (14.0-18.0); Immature Granulocytes % 0.5 %; Immature Granulocytes Absolute 0.03 #; Lymphocytes # 1.1 10*3/uL (1.4-4.0); Lymphocytes % 17.3 % (21.2-54.2); Mean Corpuscular HGB Conc 31.8 GM/DL (32-36); Mean Corpuscular Volume 85.9 FL (87-102); Mean Platelet Volume 9.7 FL (9.6-12.0); Neutrophils % 59.3 % (38.7-73.9); Platelet Count 306 T/CUMM (130-400); Red Blood Count 2.97 MC/CUMM (3.8-5.5); Red Cell Distribution Width 14.1 % (9.3-17.3); White Blood Count 6.5 T/CUMM (4-12)
[2020-03-29 05:54] LABS: Eosinophils 15 % (0-10); Lymphocytes 14 % (20-55); Segmented Neutrophils 67 % (50-85); Total Cells Counted 100
[2020-03-29 05:55] LABS: Calcium 8.4 MG/DL (8.5-10.1); Hypochromasia 1+; Microcytosis Slight; Osmolality,Calculated 260.5 MOS/KG (273-304); Platelet Estimate Normal
[2020-03-29] MEDS ORDERED: MAGNESIUM SULF RIDER 2 GM in PREMIX 1 EACH IV ONE (07:29)
[2020-03-29] MEDS: ACETAMINOPHEN 325 MG TABLET PO SCH ×4 (08:17→21:11)
[2020-03-29] MEDS: ZINC GLUCONATE 50 MG TABLET PO SCH (08:18)
[2020-03-29] MEDS: LACTOBACILLUS ACIDOPHILUS/BULGARICUS CAPLET PO SCH ×3 (08:18→21:11)
[2020-03-29] MEDS: CALCIUM (CARBONATE) 600 MG TABLET PO SCH ×2 (08:18→21:10)
[2020-03-29] MEDS: TAMSULOSIN 0.4 MG CAPSULE PO SCH ×2 (08:19→21:11)
[2020-03-29] MEDS: ASPIRIN EC 81 MG TABLET PO SCH (08:19)
[2020-03-29] MEDS: MULTIVITAMIN (CENTRUM) TABLET PO SCH (08:19)
[2020-03-29] MEDS: ASCORBIC ACID 500 MG TABLET PO SCH ×2 (08:19→21:18)
[2020-03-29] MEDS: LOSARTAN 50 MG TABLET PO SCH (08:19)
[2020-03-29] MEDS: carvediloL 6.25 MG TABLET PO SCH ×2 (08:19→21:11)
[2020-03-29] MEDS: FERROUS SULFATE 325 MG TABLET PO SCH (08:20)
[2020-03-29] MEDS: ZINC OXIDE PASTE 113 GM TUBE TOP SCH ×2 (08:20→21:23)
[2020-03-29] MEDS: MAGNESIUM OXIDE 400 MG TABLET PO SCH ×3 (08:21→21:10)
[2020-03-29] MEDS: ENOXAPARIN 40 MG/0.4 ML SYRINGE SUBCUT SCH (21:10)
[2020-03-29] MEDS: ATORVASTATIN 80 MG TABLET PO SCH (21:11)
[2020-03-30] MEDS: ALBUTEROL/IPRATROPIUM 3 ML NEB RESP TX SCH ×4 (01:16→19:42)
[2020-03-30] MEDS: LOSARTAN 50 MG TABLET PO SCH (08:23)
[2020-03-30] MEDS: ZINC GLUCONATE 50 MG TABLET PO SCH (08:23)
[2020-03-30] MEDS: MULTIVITAMIN (CENTRUM) TABLET PO SCH (08:23)
[2020-03-30] MEDS: ASCORBIC ACID 500 MG TABLET PO SCH ×2 (08:24→20:33)
[2020-03-30] MEDS: CALCIUM (CARBONATE) 600 MG TABLET PO SCH ×2 (08:24→20:34)
[2020-03-30] MEDS: ASPIRIN EC 81 MG TABLET PO SCH (08:24)
[2020-03-30] MEDS: ACETAMINOPHEN 325 MG TABLET PO SCH ×4 (08:24→20:34)
[2020-03-30] MEDS: LACTOBACILLUS ACIDOPHILUS/BULGARICUS CAPLET PO SCH ×3 (08:24→20:34)
[2020-03-30] MEDS: carvediloL 6.25 MG TABLET PO SCH ×2 (08:24→20:34)
[2020-03-30] MEDS: TAMSULOSIN 0.4 MG CAPSULE PO SCH ×2 (08:25→20:34)
[2020-03-30] MEDS: MAGNESIUM OXIDE 400 MG TABLET PO SCH ×3 (08:25→20:33)
[2020-03-30] MEDS: FERROUS SULFATE 325 MG TABLET PO SCH (08:25)
[2020-03-30] MEDS: ZINC OXIDE PASTE 113 GM TUBE TOP SCH ×2 (08:25→22:03)
[2020-03-30] MEDS: ENOXAPARIN 40 MG/0.4 ML SYRINGE SUBCUT SCH (20:32)
[2020-03-30] MEDS: ATORVASTATIN 80 MG TABLET PO SCH (20:33)
[2020-03-31] MEDS: ALBUTEROL/IPRATROPIUM 3 ML NEB RESP TX SCH ×2 (02:30→07:51)
[2020-03-31] MEDS: ASPIRIN EC 81 MG TABLET PO SCH (09:05)
[2020-03-31] MEDS: LOSARTAN 50 MG TABLET PO SCH (09:05)
[2020-03-31] MEDS: TAMSULOSIN 0.4 MG CAPSULE PO SCH (09:05)
[2020-03-31] MEDS: MULTIVITAMIN (CENTRUM) TABLET PO SCH (09:05)
[2020-03-31] MEDS: ZINC GLUCONATE 50 MG TABLET PO SCH (09:05)
[2020-03-31] MEDS: MAGNESIUM OXIDE 400 MG TABLET PO SCH (09:05)
[2020-03-31] MEDS: ASCORBIC ACID 500 MG TABLET PO SCH (09:05)
[2020-03-31] MEDS: LACTOBACILLUS ACIDOPHILUS/BULGARICUS CAPLET PO SCH (09:05)
[2020-03-31] MEDS: CALCIUM (CARBONATE) 600 MG TABLET PO SCH (09:05)
[2020-03-31] MEDS: carvediloL 6.25 MG TABLET PO SCH (09:05)
[2020-03-31] MEDS: FERROUS SULFATE 325 MG TABLET PO SCH (09:05)
[2020-03-31] MEDS: ACETAMINOPHEN 325 MG TABLET PO SCH (09:05)
[2020-03-31] MEDS: ZINC OXIDE PASTE 113 GM TUBE TOP SCH (09:05)
[2020-03-31 13:18] VITALS: BP 149/82
== END 2020-03-31 12:56 | DRG 194 ==
LOC: EDUNIT# → EDBD → N.ED 14:43 → SUATTDRO 17:27 → SUPCPDRO 17:27 → N.EDINP 17:27 → N.TELEN 20:16 → N.4E 03-20 20:33
PROVIDERS: ADMIT Internal Medicine Geriatric Medicine; ATTEND Internal Medicine